=== PATIENT | female | born 1960 | race Caucasian/White ===

== ENCOUNTER 2017-10-09 17:30 | Inpatient (IN) ==
[2017-10-09] MEDS ORDERED: 0.9 % Sodium Chloride 1,000 ML IVC ONE (17:50)
[2017-10-09] MEDS ORDERED: *HR* HYDROmorphone (PF) 1 MG/ML SYRINGE IVP ONE (18:02)
--- NOTE | 2017-10-09 18:05 | Emergency Department Note ---
Disposition Clinical Impression: Abscess of skin or subcutaneous tissue Qualifiers: Site of cutaneous abscess: extremity Site of cutaneous abscess of extremity: lower extremity Laterality: right Qualified Code(s): L02.415 - Cutaneous abscess of right lower limb Cellulitis Qualifiers: Site of cellulitis: extremity Site of cellulitis of extremity: lower extremity Laterality: right Qualified Code(s): L03.115 - Cellulitis of right lower limb Disposition: Still a Patient Condition: Undetermined Referrals: Cici Kinsey [Primary Care Provider] - Forms: ED Satisfaction Letter General Adult HPI - General Chief complaint: ED Skin/Abscess/Foreign Body Stated complaint: Cyst on thigh Time Seen by Provider: 10/09/17 17:38 Source: patient Limitations: no limitations Nursing Notes Reviewed: Yes Vital Signs Reviewed: Yes - History of Present Illness Pain Scale: 10 - Related Data Previous Rx's Medication Instructions Recorded Buspirone HCl [Buspar] 15 mg PO TID #90 tablet 09/21/15 FLUoxetine HCl [Prozac] 60 mg PO DAILY #90 capsule 09/21/15 LORazepam [Ativan] 0.5 mg PO TID #90 tablet 09/21/15 Lurasidone [Latuda] 40 mg PO BID #60 tablet 09/21/15 OXcarbazepine [Trileptal] 300 mg PO HS #30 tablet 09/21/15 Trazodone HCl [TraZODone] 100 mg PO HS #30 tablet 09/21/15 Azithromycin [Zithromax] 250 mg PO DAILY #6 tablet 04/13/16 GuaiFENesin/Dextromethorphan 5 ml PO Q6H PRN #120 ml 04/13/16 [Robitussin Cough-Chest Dm Liq] Loratadine [Claritin] 10 mg PO DAILY #30 tablet 04/13/16 Cefdinir [Omnicef] 300 mg PO BID #20 capsule 04/19/16 Fluconazole [Diflucan] 150 mg PO DAILY #1 tab 04/19/16 Ondansetron [Zofran] 8 mg PO TID PRN #12 tablet 04/19/16 Clindamycin HCl 300 mg PO TID 10 Days #30 capsule 10/08/17 Allergies Allergy/AdvReac Type Severity Reaction Status Date / Time levofloxacin [From Levaquin] AdvReac Joint Pain Verified 09/04/15 12:59 Past Medical History - Past Medical History Medical history: Reports: hyperlipidemia, hypertension, myocardial infarction, TIA, other Surgical history: Reports: cholecystectomy, hysterectomy, other Psychiatric history: Reports: anxiety, depression, prior suicide attempt, schizophrenia, previous psychiatric hospitalization AUTOMOTIVE SERVICE ADVISOR history: Reports: no AUTOMOTIVE SERVICE ADVISOR history - Social History Smoking Status: Current every day smoker Smokeless Tobacco Status: No Alcohol use: Reports: none Drug use: Reports: none Physical Exam - General Limitations: no limitations General appearance: alert, in no apparent distress Course Vital Signs Temperature 98.3 F 10/09/17 17:31 Pulse Rate 104 10/09/17 17:31 Respiratory Rate 16 10/09/17 17:31 Blood Pressure 113/71 10/09/17 17:31 O2 Sat by Pulse Oximetry 96 10/09/17 17:31 Temperature 98.3 F 10/09/17 17:40 Pulse Rate 89 10/09/17 18:20 Respiratory Rate 16 10/09/17 18:20 Blood Pressure 102/62 10/09/17 18:20 O2 Sat by Pulse Oximetry 97 10/09/17 18:20 Oxygen Delivery Oxygen Delivery Room Air Medical Decision Making - [facility] Narrative Medical decision making narrative: 1804 hrs.: Patient EKG performed shows a sinus rhythm, rate is 87, QRS is 109, QTC is 431, no signs of ischemia, compared this to an EKG done in 2016 shows no changes except for rate. - Lab Data Result diagrams: 10/09/17 17:57 10/09/17 17:57 Lab Results 10/09/17 10/09/17 10/09/17 Range/Units 17:57 17:57 18:15 WBC 10.6 (4.3-11.1) K/mcL RBC 3.48 L (3.82-4.97) M/mcL Hgb 11.2 L (11.5-15.4) g/dL Hct 32.1 L (35.3-44.9) % MCV 92.2 (83.0-100.0) fL MCH 32.2 (28.0-33.3) pg MCHC 34.9 (31.6-35.5) g/dL RDW 12.6 (11.5-14.5) % Plt Count 250 (140-400) K/mcL MPV 8.6 L (9.4-12.4) fL Immature Gran % 0.3 (0-4) % Seg Neutrophils % 68.9 % Lymphocytes % 20.6 % Monocytes % 7.2 % Eosinophils % 2.5 % Basophils % 0.5 % Neutrophils # 7.3 (1.6-8.9) K/mcL Lymphocytes # 2.2 (0.6-4.6) K/mcL Monocytes # 0.8 (0.0-1.3) K/mcL Eosinophils # 0.3 (0.0-0.6) K/mcL Basophils # 0.1 (0.0-0.2) K/mcL Sodium 124 L (136-145) mEq/L Potassium 3.7 (3.5-5.1) mEq/L Chloride 89 L (98-107) mEq/L Carbon Dioxide 25 (23-29) mEq/L BUN 10 (6-20) mg/dL Creatinine 0.77 (0.60-1.20) mg/dL Est GFR ( Amer) > 60 (> 60) Est GFR (Non-Af Amer) > 60 (> 60) BUN/Creatinine Ratio 13 (6-26) Glucose 128 H (70-105) mg/dL Calculated Osmolality 259 L (280-300) Lactic Acid 1.2 (0.5-2.2) mmol/L Calcium 9.6 (8.6-10.3) mg/dL Attestation Statement - Attestation Attestation: This documentation is done with the assistance of Dragon dictation. Despite efforts made to ensure accuracy, there may be inaccuracies in welder operator or spelling and typographical errors. I examined this patient and my medical decision-making was reviewed with the Resident Physician. I agree with the documented findings, disposition and treatment plan as described except to the extent set forth below. Patient seen and evaluated with Dr. Sánchez and myself, I agree with his evaluation and management plan, supervised care the patient's stay. Patient presents today with what she says is an abscess on her right thigh. This is on the upper aspect of the thigh just below the crease line anteriorly. This does not involve the vagina or down into the perineal area. She sits been about 5 days. Tre and caty. She went to urgent care last night. They started on antibiotic that is 3 times a day and start to the B but she is not certain of the name. She has had a total of 4 doses. These said the redness is expanding. What worries her is that on the left leg about 5 years ago she had necrotizing fasciitis at that surgery for that. She states she is not diabetic. She is not allergic to any medications. We will start her on antibiotics here after getting labs something for pain and reassess. We will do a bedside ultrasound the area and then she still needs need CT of the area. She is in agreement with plan.
[2017-10-09 18:09] LABS: Basophils # 0.1 K/mcL (0.0-0.2); Basophils % 0.5 %; Eosinophils # 0.3 K/mcL (0.0-0.6); Eosinophils % 2.5 %; Hematocrit 32.1 % (35.3-44.9); Hemoglobin 11.2 g/dL (11.5-15.4); Immature Granulocytes % 0.3 % (0-4); Lymphocytes # 2.2 K/mcL (0.6-4.6); Lymphocytes % 20.6 %; Mean Corpuscular HGB Conc 34.9 g/dL (31.6-35.5); Mean Corpuscular Hemoglobin 32.2 pg (28.0-33.3); Mean Corpuscular Volume 92.2 fL (83.0-100.0); Mean Platelet Volume 8.6 fL (9.4-12.4); Monocytes # 0.8 K/mcL (0.0-1.3); Monocytes % 7.2 %; Neutrophils # 7.3 K/mcL (1.6-8.9); Platelet Count 250 K/mcL (140-400); Red Blood Count 3.48 M/mcL (3.82-4.97); Red Cell Distribution Width 12.6 % (11.5-14.5); Segmented Neutrophils % 68.9 %
[2017-10-09 18:28] LABS: BUN/Creatinine Ratio 13 (6-26); Blood Urea Nitrogen 10 mg/dL (6-20); Calcium 9.6 mg/dL (8.6-10.3); Carbon Dioxide 25 mEq/L (23-29); Chloride 89 mEq/L (98-107); Glucose 128 mg/dL (70-105); Osmolality,Calculated 259 (280-300); Potassium 3.7 mEq/L (3.5-5.1); Sodium 124 mEq/L (136-145); eGFR For African Americans > 60 (> 60); eGFR For Non-African Americans > 60 (> 60)
[2017-10-09] MEDS ORDERED: Isovue-370 500 ML INFUS..BTL IV ONE (18:37)
--- NOTE | 2017-10-09 18:40 | Emergency Department Note ---
Disposition Clinical Impression: Abscess of skin or subcutaneous tissue Qualifiers: Site of cutaneous abscess: extremity Site of cutaneous abscess of extremity: lower extremity Laterality: right Qualified Code(s): L02.415 - Cutaneous abscess of right lower limb Cellulitis Qualifiers: Site of cellulitis: extremity Site of cellulitis of extremity: lower extremity Laterality: right Qualified Code(s): L03.115 - Cellulitis of right lower limb Disposition: Still a Patient Condition: Undetermined Referrals: Cici Kinsey [Primary Care Provider] - Forms: ED Satisfaction Letter Time of Disposition: 18:48 Skin/Abscess/FB HPI Chief complaint: ED Skin/Abscess/Foreign Body Stated complaint: Cyst on thigh Time Seen by Provider: 10/09/17 17:38 Source: patient Mode of arrival: ambulatory Limitations: no limitations Nursing Notes Reviewed: Yes Vital Signs Reviewed: Yes HPI Narrative: 57-year-old female with history of hypertension, hyperlipidemia, [place], CVA, history of necrotizing fasciitis as well as debridement associated with, complaining of right lower extremity abscess and cellulitis. The patient was noted to develop an abscess in her right inguinal region roughly 8 hours ago. The patient states that she went to urgent care and they did a needle drainage of it. The patient states that since then it is continued to worsen and pain and induration. The patient states that the erythema surrounding is starting to radiate into her perineum and down her right lower extremity. The patient was taking clindamycin 300 mg 3 times a day. She has been taking these since then. She denies any fevers but admits to chills. Patient denies any other complaints at this time. Previous Rx's Medication Instructions Recorded Buspirone HCl [Buspar] 15 mg PO TID #90 tablet 09/21/15 FLUoxetine HCl [Prozac] 60 mg PO DAILY #90 capsule 09/21/15 LORazepam [Ativan] 0.5 mg PO TID #90 tablet 09/21/15 Lurasidone [Latuda] 40 mg PO BID #60 tablet 09/21/15 OXcarbazepine [Trileptal] 300 mg PO HS #30 tablet 09/21/15 Trazodone HCl [TraZODone] 100 mg PO HS #30 tablet 09/21/15 Azithromycin [Zithromax] 250 mg PO DAILY #6 tablet 04/13/16 GuaiFENesin/Dextromethorphan 5 ml PO Q6H PRN #120 ml 04/13/16 [Robitussin Cough-Chest Dm Liq] Loratadine [Claritin] 10 mg PO DAILY #30 tablet 04/13/16 Cefdinir [Omnicef] 300 mg PO BID #20 capsule 04/19/16 Fluconazole [Diflucan] 150 mg PO DAILY #1 tab 04/19/16 Ondansetron [Zofran] 8 mg PO TID PRN #12 tablet 04/19/16 Clindamycin HCl 300 mg PO TID 10 Days #30 capsule 10/08/17 Allergies Allergy/AdvReac Type Severity Reaction Status Date / Time levofloxacin [From Levaquin] AdvReac Joint Pain Verified 09/04/15 12:59 All systems ED: reviewed and negative except as stated. Constitutional: Reports: chills. Denies: fever, weakness ENT ED: Denies: congestion Cardiovascular: Denies: chest pain Respiratory: Denies: dyspnea Gastrointestinal: Denies: abdominal pain Genitourinary: Denies: urgency, dysuria Musculoskeletal: Denies: back pain Integumentary: Reports: rash, lesions Neurological: Denies: headache Past Medical History - Past Medical History Attestation: Yes The following information was validated with the patient. Source: patient, old records reviewed Medical history: Reports: CVA, hyperlipidemia, hypertension, myocardial infarction, TIA, other Surgical history: Reports: cholecystectomy, hysterectomy, other Psychiatric history: Reports: anxiety, depression, prior suicide attempt, schizophrenia, previous psychiatric hospitalization BIOLOGICAL INSPECTOR history: Reports: no BIOLOGICAL INSPECTOR history - Social History Smoking Status: Current every day smoker Smokeless Tobacco Status: No Alcohol use: Reports: none Drug use: Reports: none Physical Exam - General Limitations: no limitations General appearance: alert, in no apparent distress - Head Head exam: atraumatic, normocephalic, normal inspection - Eye Eye exam: Present: normal appearance, PERRL, EOMI - ENT ENT exam: normal exam, normal oropharynx, mucous membranes moist - Neck Neck exam: Present: normal inspection, full ROM, trachea midline - Chest Chest inspection: Present: normal inspection, symmetric chest wall rise - Respiratory Respiratory exam: Present: normal lung sounds bilaterally - Cardiovascular Cardiovascular exam: Present: normal rhythm, tachycardia, normal heart sounds - Abdominal Exam Abdominal exam: Present: soft, Non-Tender. Absent: tenderness, distention, guarding, rebound, rigidity - Extremities Exam Extremities exam: Present: other (Abscess in right inguinal region with cellulitis radiating distally in RLE and into perineum. Indurated region in right inguinal region.) Course Vital Signs Temperature 98.3 F 10/09/17 17:31 Pulse Rate 104 10/09/17 17:31 Respiratory Rate 16 10/09/17 17:31 Blood Pressure 113/71 10/09/17 17:31 O2 Sat by Pulse Oximetry 96 10/09/17 17:31 Temperature 98.3 F 10/09/17 17:40 Pulse Rate 89 10/09/17 18:20 Respiratory Rate 16 10/09/17 18:20 Blood Pressure 102/62 10/09/17 18:20 O2 Sat by Pulse Oximetry 97 10/09/17 18:20 Oxygen Delivery Oxygen Delivery Room Air Skin/Abscess/Foreign Body - Lab Data Lab results reviewed: Yes I reviewed the patient's lab results. Result diagrams: 10/09/17 17:57 10/09/17 17:57 Lab Results 10/09/17 10/09/17 10/09/17 Range/Units 17:57 17:57 18:15 WBC 10.6 (4.3-11.1) K/mcL RBC 3.48 L (3.82-4.97) M/mcL Hgb 11.2 L (11.5-15.4) g/dL Hct 32.1 L (35.3-44.9) % MCV 92.2 (83.0-100.0) fL MCH 32.2 (28.0-33.3) pg MCHC 34.9 (31.6-35.5) g/dL RDW 12.6 (11.5-14.5) % Plt Count 250 (140-400) K/mcL MPV 8.6 L (9.4-12.4) fL Immature Gran % 0.3 (0-4) % Seg Neutrophils % 68.9 % Lymphocytes % 20.6 % Monocytes % 7.2 % Eosinophils % 2.5 % Basophils % 0.5 % Neutrophils # 7.3 (1.6-8.9) K/mcL Lymphocytes # 2.2 (0.6-4.6) K/mcL Monocytes # 0.8 (0.0-1.3) K/mcL Eosinophils # 0.3 (0.0-0.6) K/mcL Basophils # 0.1 (0.0-0.2) K/mcL Sodium 124 L (136-145) mEq/L Potassium 3.7 (3.5-5.1) mEq/L Chloride 89 L (98-107) mEq/L Carbon Dioxide 25 (23-29) mEq/L BUN 10 (6-20) mg/dL Creatinine 0.77 (0.60-1.20) mg/dL Est GFR ( Amer) > 60 (> 60) Est GFR (Non-Af Amer) > 60 (> 60) BUN/Creatinine Ratio 13 (6-26) Glucose 128 H (70-105) mg/dL Calculated Osmolality 259 L (280-300) Lactic Acid 1.2 (0.5-2.2) mmol/L Calcium 9.6 (8.6-10.3) mg/dL - EKG Data EKG attestation: Yes I reviewed and interpreted this EKG. EKG results narrative: Heart rate 87 BPM. Normal sinus rhythm. No ST elevation or ST depression noted.
[2017-10-09] MEDS ORDERED: *HR* FentaNYL (PF) 100 MCG/2 ML VIAL IVP ONE (19:45)
--- NOTE | 2017-10-09 19:46 | Emergency Department Note ---
Disposition Clinical Impression: Abscess of skin or subcutaneous tissue Qualifiers: Site of cutaneous abscess: extremity Site of cutaneous abscess of extremity: lower extremity Laterality: right Qualified Code(s): L02.415 - Cutaneous abscess of right lower limb Cellulitis Qualifiers: Site of cellulitis: extremity Site of cellulitis of extremity: lower extremity Laterality: right Qualified Code(s): L03.115 - Cellulitis of right lower limb Disposition: Still a Patient Condition: Undetermined Referrals: Cici Kinsey [Primary Care Provider] - Forms: ED Satisfaction Letter General Adult HPI - General Chief complaint: ED Skin/Abscess/Foreign Body Stated complaint: Cyst on thigh Time Seen by Provider: 10/09/17 17:38 Source: patient Mode of arrival: ambulatory Limitations: no limitations - History of Present Illness Pain Scale: 10 - Related Data Previous Rx's Medication Instructions Recorded Buspirone HCl [Buspar] 15 mg PO TID #90 tablet 09/21/15 FLUoxetine HCl [Prozac] 60 mg PO DAILY #90 capsule 09/21/15 LORazepam [Ativan] 0.5 mg PO TID #90 tablet 09/21/15 Lurasidone [Latuda] 40 mg PO BID #60 tablet 09/21/15 OXcarbazepine [Trileptal] 300 mg PO HS #30 tablet 09/21/15 Trazodone HCl [TraZODone] 100 mg PO HS #30 tablet 09/21/15 Azithromycin [Zithromax] 250 mg PO DAILY #6 tablet 04/13/16 GuaiFENesin/Dextromethorphan 5 ml PO Q6H PRN #120 ml 04/13/16 [Robitussin Cough-Chest Dm Liq] Loratadine [Claritin] 10 mg PO DAILY #30 tablet 04/13/16 Cefdinir [Omnicef] 300 mg PO BID #20 capsule 04/19/16 Fluconazole [Diflucan] 150 mg PO DAILY #1 tab 04/19/16 Ondansetron [Zofran] 8 mg PO TID PRN #12 tablet 04/19/16 Clindamycin HCl 300 mg PO TID 10 Days #30 capsule 10/08/17 Allergies Allergy/AdvReac Type Severity Reaction Status Date / Time levofloxacin [From Levaquin] AdvReac Joint Pain Verified 09/04/15 12:59 Constitutional: Reports: chills. Denies: fever, weakness ENT ED: Denies: congestion Cardiovascular: Denies: chest pain Respiratory: Denies: dyspnea Gastrointestinal: Denies: abdominal pain Genitourinary: Denies: urgency, dysuria Musculoskeletal: Denies: back pain Integumentary: Reports: rash, lesions Neurological: Denies: headache Past Medical History - Past Medical History Medical history: Reports: CVA, hyperlipidemia, hypertension, myocardial infarction, TIA, other Surgical history: Reports: cholecystectomy, hysterectomy, other Psychiatric history: Reports: anxiety, depression, prior suicide attempt, schizophrenia, previous psychiatric hospitalization RADIATOR SPECIALIST history: Reports: no RADIATOR SPECIALIST history - Social History Smoking Status: Current every day smoker Smokeless Tobacco Status: No Alcohol use: Reports: none Drug use: Reports: none Physical Exam - General Limitations: no limitations General appearance: alert, in no apparent distress Course - Reevaluation(s) Reevaluation #1: Attestation note I examined this patient and my medical decision-making was reviewed with the emergency medicine resident. I agree with the documented findings, disposition and treatment plan as described except to the extent set forth below. Patient seen with emergency medicine resident Paramjit Colin, Please see a copy of his note for details of the H&P, ED evaluation, management and disposition. I have independently evaluated the patient and confirmed appropriate portions of the history and physical exam. Briefly patient initially seen by the emergency medicine morning team of Dr. Antonio and Dr. Sánchez. Please see a copy of their notes for details that encounter. Patient was signed out at 7 PM patient had inguinal cellulitis that spreading the concern about possible necrotizing fasciitis abdominal pelvic CT with IV contrast has been completed awaiting for radiologic results. Patient is on IV vancomycin currently getting a second dose of narcotics she got Dilaudid initially and now she is getting fentanyl. Disposition pending, admission anticipated. Time: 19:45 Vital Signs Temperature 98.3 F 10/09/17 17:31 Pulse Rate 104 10/09/17 17:31 Respiratory Rate 16 10/09/17 17:31 Blood Pressure 113/71 10/09/17 17:31 O2 Sat by Pulse Oximetry 96 10/09/17 17:31 Temperature 98.3 F 10/09/17 17:40 Pulse Rate 89 10/09/17 18:20 Respiratory Rate 16 10/09/17 18:20 Blood Pressure 102/62 10/09/17 18:20 O2 Sat by Pulse Oximetry 97 10/09/17 18:20 Oxygen Delivery Oxygen Delivery Room Air Medical Decision Making - Lab Data Result diagrams: 10/09/17 17:57 10/09/17 17:57 Lab Results 10/09/17 10/09/17 10/09/17 Range/Units 17:57 17:57 18:15 WBC 10.6 (4.3-11.1) K/mcL RBC 3.48 L (3.82-4.97) M/mcL Hgb 11.2 L (11.5-15.4) g/dL Hct 32.1 L (35.3-44.9) % MCV 92.2 (83.0-100.0) fL MCH 32.2 (28.0-33.3) pg MCHC 34.9 (31.6-35.5) g/dL RDW 12.6 (11.5-14.5) % Plt Count 250 (140-400) K/mcL MPV 8.6 L (9.4-12.4) fL Immature Gran % 0.3 (0-4) % Seg Neutrophils % 68.9 % Lymphocytes % 20.6 % Monocytes % 7.2 % Eosinophils % 2.5 % Basophils % 0.5 % Neutrophils # 7.3 (1.6-8.9) K/mcL Lymphocytes # 2.2 (0.6-4.6) K/mcL Monocytes # 0.8 (0.0-1.3) K/mcL Eosinophils # 0.3 (0.0-0.6) K/mcL Basophils # 0.1 (0.0-0.2) K/mcL Sodium 124 L (136-145) mEq/L Potassium 3.7 (3.5-5.1) mEq/L Chloride 89 L (98-107) mEq/L Carbon Dioxide 25 (23-29) mEq/L BUN 10 (6-20) mg/dL Creatinine 0.77 (0.60-1.20) mg/dL Est GFR ( Amer) > 60 (> 60) Est GFR (Non-Af Amer) > 60 (> 60) BUN/Creatinine Ratio 13 (6-26) Glucose 128 H (70-105) mg/dL Calculated Osmolality 259 L (280-300) Lactic Acid 1.2 (0.5-2.2) mmol/L Calcium 9.6 (8.6-10.3) mg/dL
--- NOTE | 2017-10-09 20:36 | Emergency Department Note ---
Disposition Clinical Impression: Abscess of skin or subcutaneous tissue Qualifiers: Site of cutaneous abscess: extremity Site of cutaneous abscess of extremity: lower extremity Laterality: right Qualified Code(s): L02.415 - Cutaneous abscess of right lower limb Cellulitis Qualifiers: Site of cellulitis: extremity Site of cellulitis of extremity: lower extremity Laterality: right Qualified Code(s): L03.115 - Cellulitis of right lower limb Disposition: Admitted As Inpatient Condition: Fair Time of Disposition: 20:55 General Adult HPI - General Chief complaint: ED Skin/Abscess/Foreign Body Stated complaint: Cyst on thigh Time Seen by Provider: 10/09/17 17:38 Source: patient Mode of arrival: ambulatory Limitations: no limitations Nursing Notes Reviewed: Yes Vital Signs Reviewed: Yes - History of Present Illness Pain Scale: 10 - Related Data Home Medications Medication Instructions Recorded Confirmed Albuterol Sulfate [Ventolin Hfa] 2 puff IH Q6H 10/09/17 10/09/17 Buspirone HCl [Buspar] 15 mg PO TID 10/09/17 10/09/17 Cetirizine HCl [Cetirizine HCl] 10 mg PO DAILY 10/09/17 10/09/17 Cholecalciferol (Vitamin D3) 1,000 mg PO BID 10/09/17 10/09/17 [Vitamin D3] Clindamycin [Cleocin] 300 mg PO TID 10/09/17 10/09/17 Divalproex (12 HR) [Depakote (12 500 mg PO TID 10/09/17 10/09/17 HR)] Escitalopram [Lexapro] 1.5 tab PO DAILY 10/09/17 10/09/17 Fluticasone/Vilanterol [Breo 1 puff IH DAILY 10/09/17 10/09/17 Ellipta 100-25 Mcg INH] LORazepam [Ativan] 0.5 mg PO TID PRN 10/09/17 10/09/17 Lurasidone [Latuda] 40 mg PO DAILY 10/09/17 10/09/17 Metoprolol [Lopressor] 25 mg PO BID 10/09/17 10/09/17 OXcarbazepine [Oxcarbazepine] 300 mg PO QAM 10/09/17 10/09/17 OXcarbazepine [Oxcarbazepine] 600 mg PO HS 10/09/17 10/09/17 Pravastatin Sodium [Pravachol] 20 mg PO HS 10/09/17 10/09/17 Tizanidine HCl [Zanaflex] 4 mg PO TID PRN 10/09/17 10/09/17 Trazodone HCl 100 - 150 mg PO HS 10/09/17 10/09/17 cloNIDine HCl [CloNIDine HCl] 0.1 mg PO HS 10/09/17 10/09/17 cloZAPine [Clozaril] 100 mg PO BID 10/09/17 10/09/17 hydroCHLOROthiazide 25 mg PO DAILY 10/09/17 10/09/17 [Hydrochlorothiazide] Allergies Allergy/AdvReac Type Severity Reaction Status Date / Time levofloxacin [From Levaquin] AdvReac Joint Pain Verified 10/09/17 20:55 Constitutional: Reports: chills. Denies: fever, weakness ENT ED: Denies: congestion Cardiovascular: Denies: chest pain Respiratory: Denies: dyspnea Gastrointestinal: Denies: abdominal pain Genitourinary: Denies: urgency, dysuria Musculoskeletal: Denies: back pain Integumentary: Reports: rash, lesions Neurological: Denies: headache Past Medical History - Past Medical History Medical history: Reports: CVA, hyperlipidemia, hypertension, myocardial infarction, TIA, other Surgical history: Reports: cholecystectomy, hysterectomy, other Psychiatric history: Reports: anxiety, depression, prior suicide attempt, schizophrenia, previous psychiatric hospitalization RHIT history: Reports: no RHIT history - Social History Smoking Status: Current every day smoker Smokeless Tobacco Status: No Alcohol use: Reports: none Drug use: Reports: none Physical Exam - General Limitations: no limitations General appearance: alert, in no apparent distress Course Course Narrative: Briefly care was signed out from Dr. Roa and Dr. Antonio, the patient with right lower extremity cellulitis CT scan to make sure she has no evidence necrotizing fasciitis started empirically on IV antibiotics, given history of neck rash, plans for admission Vital Signs Temperature 98.3 F 10/09/17 17:31 Pulse Rate 104 10/09/17 17:31 Respiratory Rate 16 10/09/17 17:31 Blood Pressure 113/71 10/09/17 17:31 O2 Sat by Pulse Oximetry 96 10/09/17 17:31 Temperature 98.1 F 10/09/17 22:10 Pulse Rate 82 10/09/17 22:10 Respiratory Rate 15 10/09/17 22:10 Blood Pressure 109/73 10/09/17 22:10 O2 Sat by Pulse Oximetry 96 10/09/17 22:10 Oxygen Delivery Oxygen Delivery Room Air Medical Decision Making - MDM Narrative Medical decision making narrative: The patient had no evidence of necrotizing fasciitis, added additionally some Zosyn, she is empirically treated with browne Zosyn for cellulitis of the right thigh and leg, the patient is admitted to the hospitalist excepting please see Dr. bryant Roa and Dr. Antonio for further history physical exam and medical decision making. - Medical Records Medical records reviewed: Yes I reviewed the patient's medical records. - Lab Data Lab results reviewed: Yes I reviewed the patient's lab results. Result diagrams: 10/09/17 17:57 10/09/17 17:57 Lab Results 10/09/17 10/09/17 10/09/17 Range/Units 17:57 17:57 18:15 WBC 10.6 (4.3-11.1) K/mcL RBC 3.48 L (3.82-4.97) M/mcL Hgb 11.2 L (11.5-15.4) g/dL Hct 32.1 L (35.3-44.9) % MCV 92.2 (83.0-100.0) fL MCH 32.2 (28.0-33.3) pg MCHC 34.9 (31.6-35.5) g/dL RDW 12.6 (11.5-14.5) % Plt Count 250 (140-400) K/mcL MPV 8.6 L (9.4-12.4) fL Immature Gran % 0.3 (0-4) % Seg Neutrophils % 68.9 % Lymphocytes % 20.6 % Monocytes % 7.2 % Eosinophils % 2.5 % Basophils % 0.5 % Neutrophils # 7.3 (1.6-8.9) K/mcL Lymphocytes # 2.2 (0.6-4.6) K/mcL Monocytes # 0.8 (0.0-1.3) K/mcL Eosinophils # 0.3 (0.0-0.6) K/mcL Basophils # 0.1 (0.0-0.2) K/mcL Sodium 124 L (136-145) mEq/L Potassium 3.7 (3.5-5.1) mEq/L Chloride 89 L (98-107) mEq/L Carbon Dioxide 25 (23-29) mEq/L BUN 10 (6-20) mg/dL Creatinine 0.77 (0.60-1.20) mg/dL Est GFR ( Amer) > 60 (> 60) Est GFR (Non-Af Amer) > 60 (> 60) BUN/Creatinine Ratio 13 (6-26) Glucose 128 H (70-105) mg/dL Calculated Osmolality 259 L (280-300) Lactic Acid 1.2 (0.5-2.2) mmol/L Calcium 9.6 (8.6-10.3) mg/dL - Radiology Data Radiology results reviewed: Yes I reviewed the patient's radiology results. Lower Extremity CT 10/09/17 18:37 IMPRESSION: 1. Cellulitis of the proximal medial subcutaneous tissues of the right thigh. No organized drainable fluid collection identified. 2. Right inguinal lymphadenopathy, likely reactive. 3. [id number] osteoarthritis of the bilateral hips. D/ / Bryn Perez MD / Bryn Perez MD Interpreting Provider: Bryn Perez MD
[2017-10-09] MEDS ORDERED: Piperacillin/Tazobactam 3.375 GM in 0.9 % Sodium Chloride Mini Bag 100 ML IVPB ONE (20:45)
--- NOTE | 2017-10-09 21:08 | Internal Med History&Physical ---
<Tigist Sheridan - Last Filed: 10/10/17 06:09> Date of Encounter: 10/10/17 Time of Encounter: 21:01 Internal Medicine - H&P: HPI Chief complaint: abcess Admitted From: Home Plans for Post Hospital Care: Home History of present illness: Ms. Pardo is a 57 year old female with a pmh of hypertension, hyperlipidemia, [place] , CVA, history of necrotizing fasciitis who presented to the ED with right inguinal region abscess and cellulitis extending down her right thigh. 5 days ago, patient states that an abscess appeared in the right inguinal area. She used warm compresses but it did not go away so she went to the urgent care on and began taking Clindamycin 300mg TID. She had had associated subjective fevers and some dizziness. Denies hematuria, dysuria, shortness of breath, chest pain. The redness continued his Thierno down her right leg and pain worsened over the last 24 hours since she came to the ED. Upon arrival to the ED, patient was tachycardic but afebrile. No leukocytosis. CT of right lower extremity showed "skin thickening and subcutaneous edema throughout the subcutaneous tissues of the anterior and medial proximal right thigh consistent with cellulitis. No organized drainable fluid collection identified. Mild subcutaneous edema extends distally down the thigh also suggestive of cellulitis." She was given once dose of Vancomycin and Zosyn. Patient was admitted to the floor for inguinal abscess with failed outpatient treatment. Past Med Surg Social Fam HX - Past Medical History Source: patient, old records reviewed Medical history: CVA, hyperlipidemia, hypertension, myocardial infarction ( requiring no intervention), TIA, other Additional medical history: necrotizing fascitis Psychiatric history: anxiety, depression, prior suicide attempt, schizophrenia, previous psychiatric hospitalization - Past Surgical History Surgical History: cholecystectomy, hysterectomy, other (Necrotizing fasciitis debridement) Additional surgical history: sinus surgery x4. electrical device inserted in bladder to regulate urine- placed a year ago. D&C - Social History Smoking Status: Current every day smoker Smokeless Tobacco Status: No Alcohol use: none Drug use: none Internal Medicine - H&P: Meds Albuterol Sulfate [Ventolin Hfa] 2 puff IH Q6H 10/09/17 [History] Buspirone HCl [Buspar] 15 mg PO TID 10/09/17 [History] Cetirizine HCl [Cetirizine HCl] 10 mg PO DAILY 10/09/17 [History] Cholecalciferol (Vitamin D3) [Vitamin D3] 1,000 mg PO BID 10/09/17 [History] Clindamycin [Cleocin] 300 mg PO TID 10/09/17 [History] Divalproex (12 HR) [Depakote (12 HR)] 500 mg PO TID 10/09/17 [History] Escitalopram [Lexapro] 1.5 tab PO DAILY 10/09/17 [History] Fluticasone/Vilanterol [Breo Ellipta 100-25 Mcg INH] 1 puff IH DAILY 10/09/17 [ History] LORazepam [Ativan] 0.5 mg PO TID PRN 10/09/17 [History] Lurasidone [Latuda] 40 mg PO DAILY 10/09/17 [History] Metoprolol [Lopressor] 25 mg PO BID 10/09/17 [History] OXcarbazepine [Oxcarbazepine] 300 mg PO QAM 10/09/17 [History] OXcarbazepine [Oxcarbazepine] 600 mg PO HS 10/09/17 [History] Pravastatin Sodium [Pravachol] 20 mg PO HS 10/09/17 [History] Tizanidine HCl [Zanaflex] 4 mg PO TID PRN 10/09/17 [History] Trazodone HCl 100 - 150 mg PO HS 10/09/17 [History] cloNIDine HCl [CloNIDine HCl] 0.1 mg PO HS 10/09/17 [History] cloZAPine [Clozaril] 100 mg PO BID 10/09/17 [History] hydroCHLOROthiazide [Hydrochlorothiazide] 25 mg PO DAILY 10/09/17 [History] Montelukast [Singulair] 10 mg PO HS 10/10/17 [History] 3 Allergy/AdvReac Type Severity Reaction Status Date / Time levofloxacin [From Levaquin] AdvReac Joint Pain Verified 10/09/17 20:55 All Systems PM: A 10-system review of systems was performed and is negative for pertinent findings except as documented above in the HPI. - Constitutional Vitals: Temp Pulse Resp BP Pulse Ox 98.3 F 84 18 124/73 96 10/09/17 17:40 10/09/17 20:37 10/09/17 20:37 10/09/17 20:37 10/09/17 20:37 Exam: Constitutional: Alert, in no acute distress Head: Normocephalic, atraumatic Heart: Normal, regular rate and rhythm, no murmurs Lungs: Clear to auscultation, no wheezes, rales, or rhonchi Abdomen: Soft, nondistended, nontender, bowel sounds present and normal, no guarding or rigidity. Extremities: red, non-flucenant mass with induration present in her right inguinal area with redness extending about 2/3 down the medial aspect of her thigh Skin: Skin warm and dry, no lesions, no rashes, no jaundice Neurologic: Cranial nerves II through XII grossly intact, strength 5/5 in all extremitites Psych: Cooperative with exam, good eye contact, cognitive function intact, speech clear, thought process logical, and goal directed Internal Med - H&P Results - Labs CBC & Chem 7: 10/10/17 04:26 10/10/17 04:26 Labs: Short CBC 10/09/17 Range/Units 17:57 WBC 10.6 (4.3-11.1) K/mcL Hgb 11.2 L (11.5-15.4) g/dL Hct 32.1 L (35.3-44.9) % Plt Count 250 (140-400) K/mcL Neutrophils # 7.3 (1.6-8.9) K/mcL BMP 10/09/17 17:57 Sodium 124 L Potassium 3.7 Chloride 89 L Carbon Dioxide 25 BUN 10 Creatinine 0.77 Glucose 128 H Calcium 9.6 - Impressions ITS Impressions Lower Extremity CT 10/09/17 18:37 IMPRESSION: 1. Cellulitis of the proximal medial subcutaneous tissues of the right thigh. No organized drainable fluid collection identified. 2. Right inguinal lymphadenopathy, likely reactive. 3. [id number] osteoarthritis of the bilateral hips. D/ / Bryn Perez MD / Bryn Perez MD Interpreting Provider: Bryn Perez MD - Assessment and plan (1) Cellulitis and abscess of right lower extremity Current Visit: Yes Status: Acute Assessment and plan: Right inguinal abscess with cellulitis extending down her right thigh about 2/ 3. CT of right lower extremity showed skin thickening and subcutaneous edema throughout the subcutaneous tissues of the anterior and medial proximal right thigh consistent with cellulitis. No organized drainable fluid collection identified. Mild subcutaneous edema extends distally down the thigh also suggestive of cellulitis.She was given one dose of Vancomycin and Zosyn. Patient currently does not meet SIRS criteria. Accurate wound culture unable to be obtain as wound was drained via needle puncture, primary team may need to call urgent care to see if wound cultures were obtained there. Plan: - continue IV Vanco and Zosyn - blood cultures obtained (2) Hyponatremia Current Visit: Yes Status: Acute Assessment and plan: Na= 124, Cl= 89, most likely 2/2 to dehydration. Will begin IV fluid rehydration with NS 75ml/hr. (3) Diabetes Current Visit: Yes Status: Chronic Assessment and plan: Patient does not take any medications for DM as she has lowered her A1c with diet and exercise. Plan: - low SSI - diet: diabetic Qualifiers: Diabetes mellitus type: type 2 Diabetes mellitus terminal superintendent insulin use: without terminal superintendent use Diabetes mellitus complication status: without complication Qualified Code(s): E11.9 - Type 2 diabetes mellitus without complications (4) Bipolar 1 disorder Current Visit: Yes Status: Acute Assessment and plan: continue home meds. Patient sees a psychiatrist in all home meds of and verified by the nurse with pill bottles at bedside. (5) Schizoaffective disorder, bipolar type Current Visit: Yes Status: Acute Assessment and plan: continue home meds. (6) DVT prophylaxis Current Visit: Yes Status: Acute Assessment and plan: Heparin SQ - Time Spent With Patient Total time spent is greater than 50% in coordination of care (as documented) at patient's floor/unit and/or counseling patient: <Pema Stevens O - Last Filed: 10/11/17 05:42> Date of Encounter: 10/10/17 Internal Medicine - H&P: HPI History of present illness: Ms. Pardo is a 57 year old female All Systems PM: A 10-system review of systems was performed and is negative for pertinent findings except as documented above in the HPI. - Constitutional Vitals: Temp Pulse Resp BP Pulse Ox 97.7 F 68 16 127/85 94 10/11/17 01:12 10/11/17 01:12 10/11/17 01:12 10/11/17 01:12 10/11/17 01:12 - Head Head exam: Present: atraumatic, normocephalic - Eye Eye exam: Present: PERRL, conjuntiva pink, sclera anicteric Pupils: Present: PERRL - Neck Neck exam general surgery: Present: supple, trachea midline. Absent: lymphadenopathy - Respiratory Respiratory exam: Present: CTAB. Absent: accessory muscle use, rales, rhonchi, wheezes - Cardiovascular Cardiovascular exam: Present: RRR, +S1, +S2. Absent: diastolic murmur, gallop, rubs, systolic murmur - GI/Abdominal GI/Abdominal exam: Present: normal bowel sounds, soft, no peritoneal signs. Absent: distended, tenderness - Extremities Exam Extremities exam: Present: warm, radial pulses palpable and symmetrical. Absent : calf tenderness, cyanotic, pedal edema - Neurological Exam Neurological exam: Present: CN II-XII intact, oriented X3, no focal deficits. Absent: pronater drift, facial droop, speech deficit - Skin Skin exam: Present: dry, intact Additional comments: Right upper inner thigh induration, erythema, ad swelling. Internal Med - H&P Results - Labs CBC & Chem 7: 10/11/17 00:42 10/11/17 01:21 Labs: Short CBC 10/11/17 Range/Units 00:42 WBC 7.3 (4.3-11.1) K/mcL Hgb 10.8 L (11.5-15.4) g/dL Hct 32.1 L (35.3-44.9) % Plt Count 274 (140-400) K/mcL Neutrophils # 3.6 (1.6-8.9) K/mcL BMP 10/10/17 10/10/17 10/11/17 12:22 18:20 00:42 Sodium 129 L 132 L 132 L Potassium 4.2 4.0 4.4 Chloride 95 L 97 L 101 Carbon Dioxide 26 26 22 L BUN 7 7 8 Creatinine 0.70 0.70 0.70 Glucose 147 H 160 H 156 H Calcium 9.7 9.5 9.1 10/11/17 01:21 Sodium 132 L Potassium 4.2 Chloride 100 Carbon Dioxide 24 BUN 8 Creatinine 0.70 Glucose 156 H Calcium 9.1 - Attending Attestation I performed a history and physical exam of the patient and discussed her management with the resident. I reviewed the residents note and agree with the documented findings and plan of care, except wound culture added and sent. Pt will also need psych medications clarified in am. - Time Spent With Patient Total time spent is greater than 50% in coordination of care (as documented) at patient's floor/unit and/or counseling patient:
[2017-10-09] MEDS ORDERED: Acetaminophen 325 MG TABLET PO PRN (21:44)
[2017-10-09] MEDS ORDERED: Naloxone 0.4 MG/ML INJ IVP PRN (21:44)
[2017-10-09] MEDS ORDERED: *HR* Dextrose 50 % in Water (Syg) 50 ML SYRINGE IVP PRN (22:14)
[2017-10-09] MEDS ORDERED: Dextrose Gel 15 GM/37.5 ML TUBE PO PRN ×2 (22:14)
[2017-10-09] MEDS ORDERED: D5% in Water 1,000 ML IVC PRN (22:14)
[2017-10-09] MEDS: *HR* Heparin 5,000 UNIT/ML VIAL SQ SCH (22:37)
[2017-10-09] MEDS: 0.9 % Sodium Chloride 1,000 ML IVC SCH (22:38)
[2017-10-09] MEDS: traMADol 50 MG TABLET PO PRN (22:42)
[2017-10-09] MEDS ORDERED: tiZANidine 4 MG TABLET PO PRN (23:22)
[2017-10-10] MEDS: OXcarbazepine 150 MG TABLET PO SCH ×2 (00:21→20:44)
[2017-10-10] MEDS: cloNIDine HCl 0.1 MG TABLET PO SCH ×2 (00:21→20:45)
[2017-10-10] MEDS: traZODone 50 MG TABLET PO SCH ×2 (00:22→20:44)
[2017-10-10] MEDS: cloZAPine 100 MG TABLET PO SCH ×3 (00:23→20:45)
[2017-10-10] MEDS: Divalproex (12 HR) 500 MG TABLET PO SCH ×4 (00:23→20:45)
[2017-10-10] MEDS: Nicotine 14 MG PATCH.TD24 TD SCH ×2 (00:23→07:51)
[2017-10-10 04:40] LABS: Basophils % 0.6 %; Eosinophils # 0.3 K/mcL (0.0-0.6); Eosinophils % 3.6 %; Hematocrit 30.1 % (35.3-44.9); Hemoglobin 10.4 g/dL (11.5-15.4); Immature Granulocytes % 0.3 % (0-4); Lymphocytes # 1.8 K/mcL (0.6-4.6); Lymphocytes % 25.3 %; Mean Corpuscular HGB Conc 34.6 g/dL (31.6-35.5); Mean Corpuscular Hemoglobin 32.3 pg (28.0-33.3); Mean Corpuscular Volume 93.5 fL (83.0-100.0); Mean Platelet Volume 8.7 fL (9.4-12.4); Monocytes # 0.6 K/mcL (0.0-1.3); Monocytes % 8.3 %; Neutrophils # 4.5 K/mcL (1.6-8.9); Platelet Count 216 K/mcL (140-400); Red Blood Count 3.22 M/mcL (3.82-4.97); Red Cell Distribution Width 12.7 % (11.5-14.5); Segmented Neutrophils % 61.9 %
[2017-10-10] MEDS: Piperacillin/Tazobactam 3.375 GM in 0.9 % Sodium Chloride Mini Bag 100 ML IVPB SCH ×3 (04:49→20:47)
[2017-10-10] MEDS: 0.9 % Sodium Chloride 1,000 ML IVC SCH (04:50)
[2017-10-10 05:00] LABS: BUN/Creatinine Ratio 14 (6-26); Blood Urea Nitrogen 10 mg/dL (6-20); Carbon Dioxide 27 mEq/L (23-29); Chloride 93 mEq/L (98-107); Glucose 165 mg/dL (70-105); Magnesium 1.9 mg/dL (1.6-2.6); Osmolality,Calculated 267 (280-300); Phosphorous 3.8 mg/dL (2.7-4.5); Potassium 3.4 mEq/L (3.5-5.1); Sodium 127 mEq/L (136-145); eGFR For African Americans > 60 (> 60); eGFR For Non-African Americans > 60 (> 60)
[2017-10-10] MEDS: *HR* Heparin 5,000 UNIT/ML VIAL SQ SCH ×2 (06:14→17:13)
[2017-10-10] MEDS: Loratadine 10 MG TABLET PO SCH (07:50)
[2017-10-10] MEDS: traMADol 50 MG TABLET PO PRN ×3 (07:50→20:45)
[2017-10-10] MEDS: hydroCHLOROthiazide 25 MG TABLET PO SCH (07:51)
[2017-10-10] MEDS: Insulin LISPRO 300 UNITS/3 ML VIAL SQ SCH ×3 (07:52→17:13)
[2017-10-10] MEDS: *HR* LORazepam 0.5 MG TABLET PO PRN ×2 (08:00→18:20)
--- NOTE | 2017-10-10 09:25 | Internal Med Progress Note ---
<Alecia Oliveira - Last Filed: 10/10/17 09:17> Date of Encounter: 10/10/17 Time of Encounter: 09:17 - Assessment and plan (1) Cellulitis Current Visit: Yes Status: Acute Assessment and plan: CT of right lower extremity showed skin thickening and subcutaneous edema throughout the subcutaneous tissues of the anterior and medial proximal right thigh consistent with cellulitis. No organized drainable fluid collection identified. - continue IV Vanco and Zosyn - blood cultures pending Qualifiers: Site of cellulitis: extremity Site of cellulitis of extremity: lower extremity Laterality: right Qualified Code(s): L03.115 - Cellulitis of right lower limb (2) Hyponatremia Current Visit: Yes Status: Acute Assessment and plan: sodium elevated to 127 this AM Most likely secondary to dehydration continue IV fluids (3) Diabetes Current Visit: Yes Status: Chronic Assessment and plan: Patient does not take any medications for DM as she has lowered her A1c with diet and exercise. 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 (5) Bipolar 1 disorder Current Visit: Yes Status: Chronic Assessment and plan: continue home meds. (6) DVT prophylaxis Current Visit: Yes Status: Acute Assessment and plan: Heparin SQ - Time Spent With Patient Total time spent is greater than 50% in coordination of care (as documented) at patient's floor/unit and/or counseling patient: - Subjective Interval history: Patient states she is already starting to feel mildly better. No nausea or headache. Good appetite. Redness has improved since yesterday. - Constitutional Vitals: Temp Pulse Resp BP Pulse Ox 98.4 F 99 15 148/90 93 10/10/17 06:52 10/10/17 06:52 10/10/17 06:52 10/10/17 06:52 10/10/17 06:52 General appearance: Present: A&O X 3, no acute distress, answers questions appropriately - Head Head exam: Present: atraumatic, normocephalic - Respiratory Respiratory exam: Present: CTAB. Absent: accessory muscle use, rales, rhonchi, wheezes - Cardiovascular Cardiovascular exam: Present: RRR, +S1, +S2. Absent: diastolic murmur, gallop, rubs, systolic murmur - GI/Abdominal GI/Abdominal exam: Present: normal bowel sounds, soft, no peritoneal signs. Absent: distended, tenderness - Skin Additional comments: red, non-flucenant mass with induration present in her right inguinal area with redness extending about 1/3 down the medial aspect of her thigh Internal Medicine: Result - Labs CBC & Chem 7: 10/10/17 04:26 10/10/17 04:26 Labs: Short CBC 10/10/17 Range/Units 04:26 WBC 7.2 (4.3-11.1) K/mcL Hgb 10.4 L (11.5-15.4) g/dL Hct 30.1 L (35.3-44.9) % Plt Count 216 (140-400) K/mcL Neutrophils # 4.5 (1.6-8.9) K/mcL BMP 10/10/17 04:26 Sodium 127 L Potassium 3.4 L Chloride 93 L Carbon Dioxide 27 BUN 10 Creatinine 0.72 Glucose 165 H Calcium 9.0 Consult Discharge Plan - Plan Referrals: Cici Kinsey [Primary Care Provider] - 10/16/17 2:40 pm <Olivia Bains - Last Filed: 10/10/17 13:27> Date of Encounter: 10/10/17 - Assessment and plan (1) Cellulitis and abscess of right lower extremity Current Visit: Yes Status: Acute (2) Hyponatremia Current Visit: Yes Status: Acute (3) Diabetes Current Visit: Yes Status: Chronic Qualifiers: Diabetes mellitus type: type 2 Diabetes mellitus longterm insulin use: without termite treater use Diabetes mellitus complication status: without complication Qualified Code(s): E11.9 - Type 2 diabetes mellitus without complications (4) DVT prophylaxis Current Visit: Yes Status: Acute (5) Schizoaffective disorder, bipolar type Current Visit: Yes Status: Chronic (6) Bipolar 1 disorder Current Visit: Yes Status: Chronic - Time Spent With Patient Total time spent is greater than 50% in coordination of care (as documented) at patient's floor/unit and/or counseling patient: - Constitutional Vitals: Temp Pulse Resp BP Pulse Ox 98.5 F 81 17 146/87 93 10/10/17 11:49 10/10/17 11:49 10/10/17 11:49 10/10/17 11:49 10/10/17 06:52 Internal Medicine: Result - Labs CBC & Chem 7: 10/10/17 04:26 10/10/17 12:22 Labs: Short CBC 10/10/17 Range/Units 04:26 WBC 7.2 (4.3-11.1) K/mcL Hgb 10.4 L (11.5-15.4) g/dL Hct 30.1 L (35.3-44.9) % Plt Count 216 (140-400) K/mcL Neutrophils # 4.5 (1.6-8.9) K/mcL BMP 10/10/17 10/10/17 04:26 12:22 Sodium 127 L 129 L Potassium 3.4 L 4.2 Chloride 93 L 95 L Carbon Dioxide 27 26 BUN 10 7 Creatinine 0.72 0.70 Glucose 165 H 147 H Calcium 9.0 9.7 - Attending Attestation I examined this patient and my medical decision-making was reviewed with the Resident Physician Dr. Oliveira. I agree with the documented findings, disposition and treatment plan as described except to the extent set forth below. Ms. Pardo is a 57 year old female with a pmh of hypertension, hyperlipidemia, [place] , CVA, history of necrotizing fasciitis who presented to the ED with right inguinal region abscess and cellulitis extending down her right thigh. pt was admitted here and started her on empirical abx. She does have moderate hyponatremia too. Gen: A, A, O x 3 Chest: DBS Heart: S1S2+ - small abscess noticed over rt groin area. Improving erythema noticed a/p 1. Acute Rt groin abscess with cellulities cont empirical abx Zosyn d/c Vanco 2. Acute hyponatremia due to hypovolemia - Dehydration Cont IV hydration frequent Na checks
[2017-10-10 13:09] LABS: BUN/Creatinine Ratio 10 (6-26); Blood Urea Nitrogen 7 mg/dL (6-20); Calcium 9.7 mg/dL (8.6-10.3); Carbon Dioxide 26 mEq/L (23-29); Chloride 95 mEq/L (98-107); Glucose 147 mg/dL (70-105); Osmolality,Calculated 269 (280-300); Potassium 4.2 mEq/L (3.5-5.1); Sodium 129 mEq/L (136-145); eGFR For African Americans > 60 (> 60); eGFR For Non-African Americans > 60 (> 60)
[2017-10-10 18:56] LABS: BUN/Creatinine Ratio 10 (6-26); Blood Urea Nitrogen 7 mg/dL (6-20); Calcium 9.5 mg/dL (8.6-10.3); Carbon Dioxide 26 mEq/L (23-29); Chloride 97 mEq/L (98-107); Glucose 160 mg/dL (70-105); Osmolality,Calculated 275 (280-300); Sodium 132 mEq/L (136-145); eGFR For African Americans > 60 (> 60); eGFR For Non-African Americans > 60 (> 60)
[2017-10-10] MEDS ORDERED: Insulin LISPRO 300 UNITS/3 ML VIAL SQ SCH (21:00)
[2017-10-10] MEDS ORDERED: Budesonide/Formoterol 80/4.5 MDI IH SCH (22:00)
[2017-10-11 01:14] LABS: Basophils % 0.5 %; Eosinophils # 0.4 K/mcL (0.0-0.6); Eosinophils % 4.9 %; Hematocrit 32.1 % (35.3-44.9); Hemoglobin 10.8 g/dL (11.5-15.4); Immature Granulocytes % 0.5 % (0-4); Lymphocytes # 2.7 K/mcL (0.6-4.6); Lymphocytes % 37.4 %; Mean Corpuscular HGB Conc 33.6 g/dL (31.6-35.5); Mean Corpuscular Hemoglobin 32.4 pg (28.0-33.3); Mean Corpuscular Volume 96.4 fL (83.0-100.0); Mean Platelet Volume 9.1 fL (9.4-12.4); Monocytes # 0.6 K/mcL (0.0-1.3); Monocytes % 7.5 %; Neutrophils # 3.6 K/mcL (1.6-8.9); Platelet Count 274 K/mcL (140-400); Red Blood Count 3.33 M/mcL (3.82-4.97); Red Cell Distribution Width 12.6 % (11.5-14.5); Segmented Neutrophils % 49.2 %
[2017-10-11 01:26] LABS: BUN/Creatinine Ratio 11 (6-26); Blood Urea Nitrogen 8 mg/dL (6-20); Calcium 9.1 mg/dL (8.6-10.3); Carbon Dioxide 22 mEq/L (23-29); Chloride 101 mEq/L (98-107); Glucose 156 mg/dL (70-105); Osmolality,Calculated 276 (280-300); Potassium 4.4 mEq/L (3.5-5.1); Sodium 132 mEq/L (136-145); eGFR For African Americans > 60 (> 60); eGFR For Non-African Americans > 60 (> 60)
[2017-10-11 02:24] LABS: BUN/Creatinine Ratio 11 (6-26); Blood Urea Nitrogen 8 mg/dL (6-20); Calcium 9.1 mg/dL (8.6-10.3); Carbon Dioxide 24 mEq/L (23-29); Chloride 100 mEq/L (98-107); Glucose 156 mg/dL (70-105); Osmolality,Calculated 276 (280-300); Potassium 4.2 mEq/L (3.5-5.1); Sodium 132 mEq/L (136-145); eGFR For African Americans > 60 (> 60); eGFR For Non-African Americans > 60 (> 60)
[2017-10-11] MEDS: *HR* Heparin 5,000 UNIT/ML VIAL SQ SCH (05:15)
[2017-10-11] MEDS: Piperacillin/Tazobactam 3.375 GM in 0.9 % Sodium Chloride Mini Bag 100 ML IVPB SCH (05:15)
[2017-10-11 06:47] LABS: Estimated Average Glucose 166 mg/dl; Hemoglobin A1C 7.4 %
[2017-10-11 08:09] VITALS: BP 142/84
--- NOTE | 2017-10-11 08:28 | Discharge Summary ---
- NOTES TO OUTPATIENT PROVIDER Notes to Outpatient Provider: f/u with PCP in one week. Continue PO Abx Bactrim for 8 more days. Put warm compressions over groin swelling area. 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 Pardo is a 57 year old female with a pmh of hypertension, hyperlipidemia, [place] , CVA, history of necrotizing fasciitis who presented to the ED with right inguinal region abscess and cellulitis extending down her right thigh. pt was admitted here and started her on empirical abx Zosyn and Vancomycin. She did failed out pt Abx Clindamycin therapy. She does have moderate hyponatremia too due to dehydration. Her symtpoms improved and her Na also got corrected with IV fluids. So will d/c her home with PO Abx Bactrim DS for 8 more days. Also noticed she does have DM2 HbA1C 7.4, so started her on Metformin. - Time Spent with Patient Total time spent providing and/or coordinating discharge services: - Discharge Medications Prescriptions: Lactobacillus [Culturelle] 1 each PO BID #30 cap.sprink metFORMIN [Glucophage] 500 mg PO BIDWM #60 tablet Nicotine Patch [Nicoderm] 14 mg TD DAILY #30 patch.td24 Sulfamethoxazole/Trimeth DS [Bactrim DS] 1 each PO BID #16 tablet Home Medications: Albuterol Sulfate [Ventolin Hfa] 2 puff IH Q6H 06/14/18 [History] Buspirone HCl [Buspar] 15 mg PO TID 10/09/17 [History] Cetirizine HCl 10 mg PO DAILY 10/09/17 [History] Cholecalciferol (Vitamin D3) [Vitamin D3] 1,000 mg PO BID 10/09/17 [History] Divalproex (12 HR) [Depakote (12 HR)] 500 mg PO TID 10/09/17 [History] Escitalopram [Lexapro] 1.5 tab PO DAILY 10/09/17 [History] Fluticasone/Vilanterol [Breo Ellipta 100-25 Mcg INH] 1 puff IH DAILY 10/09/17 [ History] LORazepam [Ativan] 0.5 mg PO TID PRN 10/09/17 [History] Lurasidone [Latuda] 40 mg PO DAILY 10/09/17 [History] Metoprolol [Lopressor] 25 mg PO BID 10/09/17 [History] OXcarbazepine [Oxcarbazepine] 300 mg PO QAM 10/09/17 [History] OXcarbazepine [Oxcarbazepine] 600 mg PO HS 10/09/17 [History] Pravastatin Sodium [Pravachol] 20 mg PO HS 10/09/17 [History] Tizanidine HCl [Zanaflex] 4 mg PO TID PRN 10/09/17 [History] Trazodone HCl 100 - 150 mg PO HS 10/09/17 [History] cloNIDine HCl [CloNIDine HCl] 0.1 mg PO HS 10/09/17 [History] cloZAPine [Clozaril] 100 mg PO BID 10/09/17 [History] hydroCHLOROthiazide [Hydrochlorothiazide] 25 mg PO DAILY 10/09/17 [History] Montelukast [Singulair] 10 mg PO HS 10/10/17 [History] Lactobacillus [Culturelle] 1 each PO BID #30 cap.sprink 10/11/17 [Rx] Nicotine Patch [Nicoderm] 14 mg TD DAILY #30 patch.td24 10/11/17 [Rx] Sulfamethoxazole/Trimeth DS [Bactrim DS] 1 each PO BID #16 tablet 10/11/17 [Rx] metFORMIN [Glucophage] 500 mg PO BIDWM #60 tablet 10/11/17 [Rx] Allergies/Adverse Reactions: 3 Allergy/AdvReac Type Severity Reaction Status Date / Time levofloxacin [From Levaquin] AdvReac Joint Pain Verified 10/09/17 20:55 Date of admission: 10/10/17 00:18 Primary care physician: Cici Kinsey - Constitutional Vitals: Temp Pulse Resp BP Pulse Ox 97.5 F L 72 16 142/84 96 10/11/17 08:08 10/11/17 08:08 10/11/17 08:08 10/11/17 08:08 10/11/17 08:08 General appearance: Present: A&O X 3, no acute distress, answers questions appropriately - Head Head exam: Present: atraumatic, normal inspection - Neck Neck exam general surgery: Present: supple - Respiratory Respiratory exam: Present: decreased breath sounds. Absent: rales, respiratory distress, rhonchi, wheezes - Cardiovascular Cardiovascular exam: Present: RRR, +S1, +S2. Absent: tachycardia - GI/Abdominal GI/Abdominal exam: Present: soft. Absent: rebound, rigid - Additional comments: Improving erythema, swelling in Rt groin area - Back Exam Back exam: Absent: CVA tenderness (L), CVA tenderness (R) - Neurological Exam Neurological exam: Present: alert, oriented X3 - Patient Status Disposition: Home, Self-Care Condition: Good Overall status at discharge: patient is back to baseline - Discharge Instructions Follow Up With: Cici Kinsey [Primary Care Provider] - 10/16/17 2:40 pm - Diet and Activity Activity: increase activity as tolerated Diet: low salt diet
[2017-10-11] MEDS ORDERED: OXcarbazepine 150 MG TABLET PO SCH (09:00)
[2017-10-11] MEDS: Divalproex (12 HR) 500 MG TABLET PO SCH (09:02)
[2017-10-11] MEDS: Loratadine 10 MG TABLET PO SCH (09:04)
[2017-10-11] MEDS: hydroCHLOROthiazide 25 MG TABLET PO SCH (09:04)
[2017-10-11] MEDS: Nicotine 14 MG PATCH.TD24 TD SCH (09:04)
[2017-10-11] MEDS: cloZAPine 100 MG TABLET PO SCH (09:04)
[2017-10-11] MEDS: Insulin LISPRO 300 UNITS/3 ML VIAL SQ SCH (09:05)
[2017-10-11] MEDS ORDERED: Aminoglycoside Consult 1 EACH MC ONE (09:31)
--- NOTE | 2017-10-13 06:36 | Electrocardiograph Report ---
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
== END 2017-10-11 09:32 | disposition home or self-care (01) | DRG 603 ==
LOC: EMEROO 17:30 → 3ANU 17:30 → SUATTDRO 10-10 00:18
PROVIDERS: ADMIT Internal Medicine; ATTEND Family Medicine

== ENCOUNTER 2019-09-28 23:05 | Observation (INO) ==
[2019-09-28] MEDS ORDERED: Ondansetron 4 MG/2 ML VIAL IVP ONE (23:27)
[2019-09-28] MEDS ORDERED: *HR* LORazepam 2 MG/ML VIAL IVP ONE (23:28)
[2019-09-28 23:43] LABS: Basophils % 0.4 %; Eosinophils # 0.3 K/mcL (0.0-0.6); Eosinophils % 2.6 %; Hematocrit 36.2 % (35.3-44.9); Hemoglobin 12.5 g/dL (11.5-15.4); Immature Granulocytes % 0.3 % (0-4); Lymphocytes # 3.1 K/mcL (0.6-4.6); Lymphocytes % 30.4 %; Mean Corpuscular HGB Conc 34.5 g/dL (31.6-35.5); Mean Corpuscular Hemoglobin 31.8 pg (28.0-33.3); Mean Corpuscular Volume 92.1 fL (83.0-100.0); Mean Platelet Volume 8.1 fL (9.4-12.4); Monocytes # 0.7 K/mcL (0.0-1.3); Monocytes % 7.2 %; Neutrophils # 6.1 K/mcL (1.6-8.9); Platelet Count 324 K/mcL (140-400); Red Blood Count 3.93 M/mcL (3.82-4.97); Red Cell Distribution Width 11.9 % (11.5-14.5); Segmented Neutrophils % 59.1 %; White Blood Count 10.3 K/mcL (4.3-11.1)
[2019-09-28] MEDS ORDERED: Lidocaine Viscous Oral Soln 15 ML SOLUTION MM ONE (23:45)
[2019-09-28 23:47] LABS: Bilirubin,Urine Negative (Negative); Blood,Urine Small (Negative); Clarity,Urine Clear (Clear); Color,Urine Yellow (Yellow); Glucose,Urine (UA) 100 mg/dL (Normal); Ketones,Urine Negative (Negative); Leukocyte Esterase,Urine Negative (Negative); Nitrite,Urine Negative (Negative); Protein,Urine Negative (Neg-Trace); Specific Gravity,Urine 1.019 (1.010-1.025); Urobilinogen,Urine Normal (Normal)
[2019-09-28 23:50] LABS: Bacteria,Urine None Seen per hpf (None-Few); Hyaline Casts,Urine None Seen per lpf (None-Few); Squamous Epithelial Cell,Urine Few per lpf (None-Few); WBC,Urine 0-3 per hpf (0-3)
[2019-09-29 00:11] LABS: Alanine Aminotransferase 11 Units/L (7-52); Albumin 4.7 g/dL (3.5-5.7); Alkaline Phosphatase 69 Units/L (34-104); Aspartate Amino Transferase 12 Units/L (13-39); BUN/Creatinine Ratio 11 (6-26); Bilirubin,Direct 0.1 mg/dL (0.0-0.2); Bilirubin,Indirect 0.2 mg/dL (0.0-1.0); Bilirubin,Total 0.3 mg/dL (0.3-1.0); Blood Urea Nitrogen 8 mg/dL (6-20); Calcium 9.8 mg/dL (8.6-10.3); Carbon Dioxide 22 mEq/L (23-29); Chloride 96 mEq/L (98-107); Globulin 2.3 g/dL (2.4-3.5); Glucose 120 mg/dL (70-105); Lipase 25 Units/L (11-82); Magnesium 1.9 mg/dL (1.6-2.6); Osmolality,Calculated 264 (280-300); Potassium 3.4 mEq/L (3.5-5.1); Sodium 127 mEq/L (136-145); Troponin I < 0.03 ng/mL (< 0.04); eGFR For African Americans > 60 (> 60); eGFR For Non-African Americans > 60 (> 60)
[2019-09-29] MEDS ORDERED: 0.9 % Sodium Chloride 1,000 ML IVC ONE (00:15)
[2019-09-29] MEDS ORDERED: Potassium Chloride Elixir 20 MEQ/15 ML UDC PO ONE (00:18)
[2019-09-29] MEDS ORDERED: *HR* Labetalol 20 MG/4 ML SYRINGE IVP ONE (00:18)
[2019-09-29 00:23] LABS: Amphetamine Screen,Urine Negative ng/mL (Cutoff=1000); Barbiturate Screen,Urine Negative ng/mL (Cutoff=200); Benzodiazepines Screen,Urine Positive ng/mL (Cutoff=200); Cannabinoid Screen,Urine Negative ng/mL (Cutoff = 50); Cocaine Screen,Urine Negative ng/mL (Cutoff= 300); Opiate Screen,Urine Negative ng/mL (Cutoff=300); Phencyclidine Screen,Urine Negative ng/mL (Cutoff=25)
[2019-09-29] MEDS ORDERED: Ziprasidone 10 MG in Water for inj. (sterile) 0.5 ML IM ONE (00:34)
[2019-09-29 00:47] LABS: Sodium, Urine 107.3 mEq/L
[2019-09-29 00:50] LABS: Acetaminophen < 10 mcg/mL (10-20); Ethanol < 10 mg/dL (Less than 10); Salicylate < 2.5 mg/dL (15.0-30.0)
[2019-09-29 01:03] LABS: Thyroid Stimulating Hormone 0.521 mcIU/mL (0.340-5.600)
[2019-09-29] MEDS ORDERED: Naloxone 0.4 MG/ML INJ IVP PRN (05:14)
[2019-09-29] MEDS ORDERED: *HR* LORazepam 2 MG/ML VIAL IVP ONE ×2 (06:09→06:30)
[2019-09-29] MEDS ORDERED: Dextrose Gel 15 GM/37.5 ML TUBE PO PRN ×2 (06:33)
[2019-09-29] MEDS ORDERED: D5% in Water 1,000 ML IVC PRN (06:33)
[2019-09-29] MEDS ORDERED: *HR* Dextrose 50 % in Water (Syg) 50 ML SYRINGE IVP PRN (06:33)
[2019-09-29] MEDS: Ondansetron 4 MG/2 ML VIAL IVP PRN ×2 (06:37→14:52)
[2019-09-29 07:24] LABS: Hematocrit 34.9 % (35.3-44.9); Hemoglobin 11.9 g/dL (11.5-15.4); Mean Corpuscular HGB Conc 34.1 g/dL (31.6-35.5); Mean Corpuscular Hemoglobin 32.1 pg (28.0-33.3); Mean Corpuscular Volume 94.1 fL (83.0-100.0); Mean Platelet Volume 8.3 fL (9.4-12.4); Platelet Count 301 K/mcL (140-400); Red Blood Count 3.71 M/mcL (3.82-4.97); Red Cell Distribution Width 12.1 % (11.5-14.5); White Blood Count 8.2 K/mcL (4.3-11.1)
[2019-09-29 07:42] LABS: BUN/Creatinine Ratio 7 (6-26); Blood Urea Nitrogen 5 mg/dL (6-20); Calcium 9.2 mg/dL (8.6-10.3); Carbon Dioxide 25 mEq/L (23-29); Chloride 100 mEq/L (98-107); Glucose 125 mg/dL (70-105); Osmolality,Calculated 269 (280-300); Potassium 3.8 mEq/L (3.5-5.1); Sodium 130 mEq/L (136-145); eGFR For African Americans > 60 (> 60); eGFR For Non-African Americans > 60 (> 60)
[2019-09-29] MEDS ORDERED: 0.9 % Sodium Chloride 1,000 ML IVC SCH (09:15)
[2019-09-29] MEDS: amLODIPine 5 MG TABLET PO SCH (10:03)
[2019-09-29] MEDS: Insulin LISPRO 300 UNITS/3 ML VIAL SQ SCH ×3 (10:04→16:18)
[2019-09-29] MEDS: Metoprolol XL (24 HR) Succ 25 MG TAB.ER.24H PO SCH (13:01)
[2019-09-29] MEDS: OXcarbazepine 150 MG TABLET PO SCH (13:02)
[2019-09-29] MEDS: cloZAPine 100 MG TABLET PO SCH (13:03)
[2019-09-29] MEDS: tiZANidine 4 MG TABLET PO PRN (14:06)
[2019-09-29] MEDS: *HR* LORazepam 0.5 MG TABLET PO PRN (14:06)
[2019-09-29] MEDS ORDERED: Acetaminophen 325 MG TABLET PO ONE (14:09)
[2019-09-29] MEDS: Nicotine 21 MG PATCH.TD24 TD SCH (14:51)
[2019-09-29] MEDS ORDERED: Metoprolol XL (24 HR) Succ 25 MG TAB.ER.24H PO SCH (18:00)
[2019-09-29] MEDS: *HR* Heparin 5,000 UNIT/ML VIAL SQ SCH (18:39)
[2019-09-29 19:50] LABS: BUN/Creatinine Ratio 6 (6-26); Blood Urea Nitrogen 5 mg/dL (6-20); Calcium 9.3 mg/dL (8.6-10.3); Carbon Dioxide 25 mEq/L (23-29); Chloride 101 mEq/L (98-107); Glucose 181 mg/dL (70-105); Osmolality,Calculated 276 (280-300); Potassium 3.8 mEq/L (3.5-5.1); Sodium 132 mEq/L (136-145); eGFR For African Americans > 60 (> 60); eGFR For Non-African Americans > 60 (> 60)
[2019-09-29] MEDS ORDERED: cloZAPine 100 MG TABLET PO SCH (21:00)
[2019-09-29] MEDS ORDERED: OXcarbazepine 150 MG TABLET PO SCH (21:00)
[2019-09-29] MEDS ORDERED: traZODone 50 MG TABLET PO PRN (21:00)
[2019-09-29] MEDS ORDERED: cloNIDine HCL 0.1 MG TABLET PO SCH (21:00)
[2019-09-30] MEDS: Ondansetron 4 MG/2 ML VIAL IVP PRN (02:15)
[2019-09-30] MEDS: tiZANidine 4 MG TABLET PO PRN (02:15)
[2019-09-30] MEDS: *HR* LORazepam 0.5 MG TABLET PO PRN (02:15)
[2019-09-30] MEDS: *HR* Heparin 5,000 UNIT/ML VIAL SQ SCH (06:03)
[2019-09-30 07:35] LABS: Basophils # 0.1 K/mcL (0.0-0.2); Basophils % 0.6 %; Eosinophils # 0.3 K/mcL (0.0-0.6); Eosinophils % 3.4 %; Hematocrit 35.4 % (35.3-44.9); Hemoglobin 11.7 g/dL (11.5-15.4); Immature Granulocytes % 0.2 % (0-4); Lymphocytes # 2.5 K/mcL (0.6-4.6); Lymphocytes % 27.9 %; Mean Corpuscular HGB Conc 33.1 g/dL (31.6-35.5); Mean Corpuscular Hemoglobin 31.7 pg (28.0-33.3); Mean Corpuscular Volume 95.9 fL (83.0-100.0); Mean Platelet Volume 8.1 fL (9.4-12.4); Monocytes # 0.7 K/mcL (0.0-1.3); Monocytes % 7.5 %; Neutrophils # 5.4 K/mcL (1.6-8.9); Platelet Count 303 K/mcL (140-400); Red Blood Count 3.69 M/mcL (3.82-4.97); Red Cell Distribution Width 12.4 % (11.5-14.5); Segmented Neutrophils % 60.4 %
[2019-09-30] MEDS: Insulin LISPRO 300 UNITS/3 ML VIAL SQ SCH ×2 (07:50→13:34)
[2019-09-30 07:57] LABS: BUN/Creatinine Ratio 10 (6-26); Blood Urea Nitrogen 8 mg/dL (6-20); Calcium 9.5 mg/dL (8.6-10.3); Carbon Dioxide 25 mEq/L (23-29); Chloride 104 mEq/L (98-107); Glucose 105 mg/dL (70-105); Magnesium 2.2 mg/dL (1.6-2.6); Osmolality,Calculated 277 (280-300); Phosphorous 3.5 mg/dL (2.7-4.5); Sodium 134 mEq/L (136-145); eGFR For African Americans > 60 (> 60); eGFR For Non-African Americans > 60 (> 60)
[2019-09-30] MEDS: amLODIPine 5 MG TABLET PO SCH (08:37)
[2019-09-30] MEDS: cloZAPine 100 MG TABLET PO SCH (08:38)
[2019-09-30] MEDS: Metoprolol XL (24 HR) Succ 25 MG TAB.ER.24H PO SCH (08:38)
[2019-09-30] MEDS: Nicotine 21 MG PATCH.TD24 TD SCH (08:38)
[2019-09-30] MEDS: OXcarbazepine 150 MG TABLET PO SCH (08:39)
[2019-09-30] MEDS ORDERED: Cholecalciferol (D-3) 1,000 UNIT (25MCG) TABLET PO SCH (09:00)
[2019-09-30 13:33] VITALS: BP 151/94
[2019-10-01 01:33] LABS: Valproate Free <7 ug/mL (7-23)
[2019-10-01 14:03] LABS: Valproate Total <7 ug/mL (50-125)
== END 2019-09-30 14:06 ==
LOC: EMEROOARM 23:05 → 3BNU 23:05 → SUATTDRO 09-29 03:25 → 3BNU 09-29 03:49
PROVIDERS: ADMIT Student in an Organized Health Care Education/Training Program; ATTEND Internal Medicine

== ENCOUNTER 2019-11-11 20:27 | Observation (INO) ==
[2019-11-11] MEDS ORDERED: 0.9 % Sodium Chloride 1,000 ML IVC ONE (20:45)
[2019-11-11] MEDS ORDERED: Naloxone 0.4 MG/ML INJ IVP ONE (20:45)
[2019-11-11 21:20] LABS: Basophils % 0.2 %; Eosinophils % 0.2 %; Hemoglobin 10.6 g/dL (11.5-15.4); Immature Granulocytes % 0.4 % (0-4); Lymphocytes # 1.6 K/mcL (0.6-4.6); Lymphocytes % 9.7 %; Mean Corpuscular HGB Conc 32.1 g/dL (31.6-35.5); Mean Corpuscular Hemoglobin 30.6 pg (28.0-33.3); Mean Corpuscular Volume 95.4 fL (83.0-100.0); Mean Platelet Volume 8.6 fL (9.4-12.4); Monocytes # 0.8 K/mcL (0.0-1.3); Monocytes % 4.8 %; Neutrophils # 13.8 K/mcL (1.6-8.9); Platelet Count 377 K/mcL (140-400); Red Blood Count 3.46 M/mcL (3.82-4.97); Segmented Neutrophils % 84.7 %; White Blood Count 16.3 K/mcL (4.3-11.1)
[2019-11-11 21:23] LABS: VBG HCO3 26 mEq/L (21-27); VBG PCO2 48 mmHg (41-51); VBG PH 7.35 pH Units (7.32-7.42); VBG PO2 41 mmHg (25-50)
[2019-11-11 21:43] LABS: Acetaminophen < 10 mcg/mL (10-20); Alanine Aminotransferase 16 Units/L (7-52); Albumin 4.1 g/dL (3.5-5.7); Albumin/Globulin Ratio 1.8 (1.1-2.2); Alkaline Phosphatase 83 Units/L (34-104); Aspartate Amino Transferase 11 Units/L (13-39); BUN/Creatinine Ratio 18 (6-26); Bilirubin,Direct 0.1 mg/dL (0.0-0.2); Bilirubin,Indirect 0.2 mg/dL (0.0-1.0); Bilirubin,Total 0.3 mg/dL (0.3-1.0); Blood Urea Nitrogen 14 mg/dL (6-20); Carbon Dioxide 25 mEq/L (23-29); Chloride 102 mEq/L (98-107); Ethanol < 10 mg/dL (Less than 10); Globulin 2.3 g/dL (2.4-3.5); Glucose 180 mg/dL (70-105); Osmolality,Calculated 287 (280-300); Potassium 3.7 mEq/L (3.5-5.1); Salicylate < 2.5 mg/dL (15.0-30.0); Sodium 136 mEq/L (136-145); Total Protein 6.4 g/dL (6.4-8.9); Troponin I < 0.03 ng/mL (< 0.04); eGFR For African Americans > 60 (> 60); eGFR For Non-African Americans > 60 (> 60)
[2019-11-11 21:56] LABS: Thyroid Stimulating Hormone 0.114 mcIU/mL (0.340-5.600)
[2019-11-11 22:27] LABS: Bilirubin,Urine Negative (Negative); Blood,Urine Negative (Negative); Clarity,Urine Turbid (Clear); Color,Urine Yellow (Yellow); Glucose,Urine (UA) 200 mg/dL (Normal); Hyaline Casts,Urine Few per lpf (None Seen); Ketones,Urine 10 mg/dL (Negative); Leukocyte Esterase,Urine Negative (Negative); Mucus,Urine Few per lpf (None-Few); Nitrite,Urine Negative (Negative); Protein,Urine 70 mg/dL (Neg-Trace); Specific Gravity,Urine 1.024 (1.010-1.025); Squamous Epithelial Cell,Urine Moderate per hpf (None-Few)
[2019-11-11 22:28] LABS: Amphetamine Screen,Urine Negative ng/mL (Cutoff=1000); Barbiturate Screen,Urine Negative ng/mL (Cutoff=200); Benzodiazepines Screen,Urine Negative ng/mL (Cutoff=200); Cannabinoid Screen,Urine Negative ng/mL (Cutoff = 50); Cocaine Screen,Urine Negative ng/mL (Cutoff= 300); Opiate Screen,Urine Negative ng/mL (Cutoff=300); Phencyclidine Screen,Urine Negative ng/mL (Cutoff=25)
[2019-11-11] MEDS ORDERED: 0.9 % Sodium Chloride 1,000 ML IVC SCH (23:45)
[2019-11-11] MEDS ORDERED: Ondansetron 4 MG/2 ML VIAL IVP PRN (23:57)
[2019-11-12] MEDS ORDERED: *HR* Dextrose 50 % in Water (Vial) 50 ML VIAL IVP PRN (01:29)
[2019-11-12] MEDS ORDERED: D5% in Water 1,000 ML IVC PRN (01:29)
[2019-11-12] MEDS ORDERED: Dextrose Gel 15 GM/37.5 ML TUBE PO PRN ×2 (01:29)
[2019-11-12] MEDS ORDERED: Acetaminophen 325 MG TABLET PO PRN (01:53)
[2019-11-12] MEDS: *HR* Heparin 5,000 UNIT/ML VIAL SQ SCH ×2 (05:41→14:03)
[2019-11-12 07:32] LABS: Basophils % 0.3 %; Eosinophils # 0.1 K/mcL (0.0-0.6); Eosinophils % 1.1 %; Hematocrit 27.2 % (35.3-44.9); Immature Granulocytes % 0.5 % (0-4); Lymphocytes # 2.9 K/mcL (0.6-4.6); Lymphocytes % 26.3 %; Mean Corpuscular Hemoglobin 30.6 pg (28.0-33.3); Mean Corpuscular Volume 95.8 fL (83.0-100.0); Mean Platelet Volume 8.5 fL (9.4-12.4); Monocytes # 0.8 K/mcL (0.0-1.3); Neutrophils # 7.2 K/mcL (1.6-8.9); Platelet Count 318 K/mcL (140-400); Red Blood Count 2.84 M/mcL (3.82-4.97); Red Cell Distribution Width 11.9 % (11.5-14.5); Segmented Neutrophils % 64.8 %; White Blood Count 11.1 K/mcL (4.3-11.1)
[2019-11-12 07:52] LABS: Hemoglobin 8.7 g/dL (11.5-15.4)
[2019-11-12 07:59] LABS: Alanine Aminotransferase 13 Units/L (7-52); Albumin 3.3 g/dL (3.5-5.7); Albumin/Globulin Ratio 1.9 (1.1-2.2); Alkaline Phosphatase 66 Units/L (34-104); Aspartate Amino Transferase 11 Units/L (13-39); BUN/Creatinine Ratio 16 (6-26); Bilirubin,Total 0.3 mg/dL (0.3-1.0); Blood Urea Nitrogen 9 mg/dL (6-20); Calcium 8.4 mg/dL (8.6-10.3); Carbon Dioxide 23 mEq/L (23-29); Chloride 109 mEq/L (98-107); Globulin 1.7 g/dL (2.4-3.5); Glucose 101 mg/dL (70-105); Osmolality,Calculated 285 (280-300); Potassium 3.7 mEq/L (3.5-5.1); Sodium 138 mEq/L (136-145); Troponin I < 0.03 ng/mL (< 0.04); eGFR For African Americans > 60 (> 60); eGFR For Non-African Americans > 60 (> 60)
[2019-11-12] MEDS: amLODIPine 5 MG TABLET PO SCH (18:10)
[2019-11-12] MEDS: Metoprolol XL (24 HR) Succ 50 MG TAB.ER.24H PO SCH (19:55)
[2019-11-12] MEDS: Cholecalciferol (D-3) 1,000 UNIT (25MCG) TABLET PO SCH (19:56)
[2019-11-13 03:25] LABS: Basophils % 0.4 %; Eosinophils # 0.1 K/mcL (0.0-0.6); Eosinophils % 1.3 %; Hematocrit 31.7 % (35.3-44.9); Immature Granulocytes % 0.4 % (0-4); Lymphocytes # 2.3 K/mcL (0.6-4.6); Lymphocytes % 24.6 %; Mean Corpuscular HGB Conc 33.1 g/dL (31.6-35.5); Mean Corpuscular Hemoglobin 31.5 pg (28.0-33.3); Mean Corpuscular Volume 95.2 fL (83.0-100.0); Mean Platelet Volume 8.5 fL (9.4-12.4); Monocytes # 0.7 K/mcL (0.0-1.3); Monocytes % 7.6 %; Neutrophils # 6.2 K/mcL (1.6-8.9); Platelet Count 332 K/mcL (140-400); Red Blood Count 3.33 M/mcL (3.82-4.97); Red Cell Distribution Width 11.8 % (11.5-14.5); Segmented Neutrophils % 65.7 %; White Blood Count 9.5 K/mcL (4.3-11.1)
[2019-11-13 03:30] LABS: Hemoglobin 10.5 g/dL (11.5-15.4)
[2019-11-13 03:38] LABS: BUN/Creatinine Ratio 10 (6-26); Blood Urea Nitrogen 5 mg/dL (6-20); Calcium 9.5 mg/dL (8.6-10.3); Carbon Dioxide 23 mEq/L (23-29); Chloride 109 mEq/L (98-107); Glucose 133 mg/dL (70-105); Osmolality,Calculated 287 (280-300); Potassium 3.7 mEq/L (3.5-5.1); Sodium 139 mEq/L (136-145); eGFR For African Americans > 60 (> 60); eGFR For Non-African Americans > 60 (> 60)
[2019-11-13] MEDS ORDERED: Insulin LISPRO 300 UNITS/3 ML VIAL SQ SCH (07:30)
[2019-11-13] MEDS: Metoprolol XL (24 HR) Succ 50 MG TAB.ER.24H PO SCH (08:53)
[2019-11-13] MEDS: Cholecalciferol (D-3) 1,000 UNIT (25MCG) TABLET PO SCH (08:53)
[2019-11-13] MEDS: amLODIPine 5 MG TABLET PO SCH (08:53)
[2019-11-13 11:49] VITALS: BP 161/98
== END 2019-11-13 13:05 ==
LOC: 3BNU 20:27 → EMEROOARM 20:27 → 3BNU 11-12 00:42
PROVIDERS: ADMIT Internal Medicine; ATTEND Internal Medicine

== ENCOUNTER 2020-01-12 18:06 | Observation (INO) ==
[2020-01-12] MEDS ORDERED: 0.9 % Sodium Chloride 1,000 ML IVC ONE (18:16)
[2020-01-12] MEDS ORDERED: Isovue-370 500 ML BOTTLE IVP ONE (18:17)
[2020-01-12 18:33] LABS: Basophils # 0.1 K/mcL (0.0-0.2); Basophils % 0.5 %; Eosinophils # 0.3 K/mcL (0.0-0.6); Eosinophils % 2.3 %; Hematocrit 31.5 % (35.3-44.9); Hemoglobin 10.2 g/dL (11.5-15.4); Immature Granulocytes % 0.5 % (0-4); Lymphocytes # 3.8 K/mcL (0.6-4.6); Lymphocytes % 28.6 %; Mean Corpuscular HGB Conc 32.4 g/dL (31.6-35.5); Mean Corpuscular Hemoglobin 29.8 pg (28.0-33.3); Mean Corpuscular Volume 92.1 fL (83.0-100.0); Mean Platelet Volume 8.5 fL (9.4-12.4); Monocytes # 0.8 K/mcL (0.0-1.3); Monocytes % 5.8 %; Neutrophils # 8.3 K/mcL (1.6-8.9); Platelet Count 368 K/mcL (140-400); Red Blood Count 3.42 M/mcL (3.82-4.97); Red Cell Distribution Width 13.2 % (11.5-14.5); Segmented Neutrophils % 62.3 %; White Blood Count 13.3 K/mcL (4.3-11.1)
[2020-01-12 18:37] LABS: Bilirubin,Urine Negative (Negative); Blood,Urine Negative (Negative); Clarity,Urine Clear (Clear); Color,Urine Colorless (Yellow); Glucose,Urine (UA) Normal (Normal); Ketones,Urine Negative (Negative); Leukocyte Esterase,Urine Negative (Negative); Nitrite,Urine Negative (Negative); Protein,Urine Negative (Neg-Trace); Specific Gravity,Urine < 1.005 (1.010-1.025); Urobilinogen,Urine Normal (Normal)
[2020-01-12 18:38] LABS: Prothrombin Time 10.8 Seconds (9.4-12.1)
[2020-01-12 18:40] LABS: Activated Partial Thrombo Time 36.8 Seconds (26.0-36.0)
[2020-01-12 18:45] LABS: Amphetamine Screen,Urine Negative ng/mL (Cutoff=1000); Barbiturate Screen,Urine Negative ng/mL (Cutoff=200); Benzodiazepines Screen,Urine Negative ng/mL (Cutoff=200); Cannabinoid Screen,Urine Negative ng/mL (Cutoff = 50); Cocaine Screen,Urine Negative ng/mL (Cutoff= 300); Opiate Screen,Urine Negative ng/mL (Cutoff=300); Phencyclidine Screen,Urine Negative ng/mL (Cutoff=25)
[2020-01-12 18:48] LABS: ABG Base Excess -1 mEq/L (-2 to 3); ABG HCO3 23 mEq/L (21-27); ABG Oxygen Saturation 98 % (95-98); ABG PCO2 32 mmHg (35-45); ABG PH 7.45 pH Units (7.32-7.45); ABG PO2 100 mmHg (85-104); ABG TCO2 23 mEq/L (20-26)
[2020-01-12] MEDS: Thiamine (B-1) 100 MG, Folic Acid 1 MG, MVI, adult with vitamin K 10 ML in 0.9 % Sodi... IVPB SCH (18:49)
[2020-01-12 19:10] LABS: Alanine Aminotransferase 11 Units/L (7-52); Albumin 3.8 g/dL (3.5-5.7); Albumin/Globulin Ratio 1.7 (1.1-2.2); Alkaline Phosphatase 65 Units/L (34-104); Aspartate Amino Transferase 12 Units/L (13-39); BUN/Creatinine Ratio 27 (6-26); Bilirubin,Direct 0.1 mg/dL (0.0-0.2); Bilirubin,Indirect 0.3 mg/dL (0.0-1.0); Bilirubin,Total 0.4 mg/dL (0.3-1.0); Blood Urea Nitrogen 20 mg/dL (6-20); Calcium 9.4 mg/dL (8.6-10.3); Carbon Dioxide 22 mEq/L (23-29); Chloride 97 mEq/L (98-107); Creatine Kinase 26 Units/L (30-223); Ethanol < 10 mg/dL (Less than 10); Globulin 2.3 g/dL (2.4-3.5); Glucose 149 mg/dL (70-105); Osmolality,Calculated 269 (280-300); Potassium 3.7 mEq/L (3.5-5.1); Sodium 127 mEq/L (136-145); Total Protein 6.1 g/dL (6.4-8.9); Troponin I < 0.03 ng/mL (< 0.04); eGFR For African Americans > 60 (> 60); eGFR For Non-African Americans > 60 (> 60)
[2020-01-12 19:23] LABS: Thyroid Stimulating Hormone 0.205 mcIU/mL (0.340-5.600)
[2020-01-12] MEDS ORDERED: *HR* LORazepam 2 MG/ML VIAL IVP ONE (22:56)
[2020-01-12] MEDS ORDERED: 0.9 % Sodium Chloride 1,000 ML IVC SCH (23:45)
[2020-01-12] MEDS ORDERED: Naloxone 0.4 MG/ML INJ IVP PRN (23:51)
[2020-01-13] MEDS ORDERED: *HR* Dextrose 50 % in Water (Vial) 50 ML VIAL IVP PRN (00:42)
[2020-01-13] MEDS ORDERED: D5% in Water 1,000 ML IVC PRN (00:42)
[2020-01-13] MEDS ORDERED: Dextrose Gel 15 GM/37.5 ML TUBE PO PRN ×2 (00:42)
[2020-01-13 01:36] LABS: Basophils % 0.4 %; Eosinophils # 0.3 K/mcL (0.0-0.6); Eosinophils % 2.4 %; Hematocrit 30.9 % (35.3-44.9); Hemoglobin 10.2 g/dL (11.5-15.4); Immature Granulocytes % 0.2 % (0-4); Lymphocytes # 2.6 K/mcL (0.6-4.6); Lymphocytes % 24.8 %; Mean Corpuscular Hemoglobin 30.7 pg (28.0-33.3); Mean Corpuscular Volume 93.1 fL (83.0-100.0); Mean Platelet Volume 8.7 fL (9.4-12.4); Monocytes # 0.7 K/mcL (0.0-1.3); Monocytes % 6.6 %; Neutrophils # 6.9 K/mcL (1.6-8.9); Platelet Count 364 K/mcL (140-400); Red Blood Count 3.32 M/mcL (3.82-4.97); Red Cell Distribution Width 13.1 % (11.5-14.5); Segmented Neutrophils % 65.6 %; White Blood Count 10.5 K/mcL (4.3-11.1)
[2020-01-13 01:52] LABS: Acetaminophen < 10 mcg/mL (10-20); Salicylate < 2.5 mg/dL (15.0-30.0)
[2020-01-13 01:53] LABS: Alanine Aminotransferase 10 Units/L (7-52); Albumin 3.5 g/dL (3.5-5.7); Albumin/Globulin Ratio 1.7 (1.1-2.2); Alkaline Phosphatase 59 Units/L (34-104); Aspartate Amino Transferase 11 Units/L (13-39); BUN/Creatinine Ratio 24 (6-26); Bilirubin,Total 0.3 mg/dL (0.3-1.0); Blood Urea Nitrogen 16 mg/dL (6-20); Calcium 9.1 mg/dL (8.6-10.3); Carbon Dioxide 23 mEq/L (23-29); Chloride 109 mEq/L (98-107); Globulin 2.1 g/dL (2.4-3.5); Glucose 125 mg/dL (70-105); Osmolality,Calculated 291 (280-300); Potassium 3.7 mEq/L (3.5-5.1); Sodium 139 mEq/L (136-145); Total Protein 5.6 g/dL (6.4-8.9); eGFR For African Americans > 60 (> 60); eGFR For Non-African Americans > 60 (> 60)
[2020-01-13] MEDS: Insulin LISPRO 300 UNITS/3 ML VIAL SQ SCH ×4 (05:23→23:06)
[2020-01-13] MEDS: *HR* Enoxaparin 40 MG/0.4 ML SYRINGE SQ SCH (05:29)
[2020-01-13 06:14] LABS: BUN/Creatinine Ratio 21 (6-26); Blood Urea Nitrogen 15 mg/dL (6-20); Calcium 9.2 mg/dL (8.6-10.3); Carbon Dioxide 22 mEq/L (23-29); Chloride 109 mEq/L (98-107); Glucose 133 mg/dL (70-105); Osmolality,Calculated 291 (280-300); Sodium 139 mEq/L (136-145); eGFR For African Americans > 60 (> 60); eGFR For Non-African Americans > 60 (> 60)
[2020-01-13 09:31] LABS: Triiodothyronine (T3) Free 2.85 pg/mL (2.50-3.90)
[2020-01-13 13:40] LABS: BUN/Creatinine Ratio 19 (6-26); Blood Urea Nitrogen 15 mg/dL (6-20); Calcium 9.6 mg/dL (8.6-10.3); Carbon Dioxide 22 mEq/L (23-29); Chloride 109 mEq/L (98-107); Glucose 171 mg/dL (70-105); Osmolality,Calculated 289 (280-300); Potassium 4.1 mEq/L (3.5-5.1); Sodium 137 mEq/L (136-145); eGFR For African Americans > 60 (> 60); eGFR For Non-African Americans > 60 (> 60)
[2020-01-13] MEDS ORDERED: *HR* LORazepam 2 MG/ML VIAL IVP PRN (14:21)
[2020-01-13] MEDS: *HR* LORazepam 2 MG/ML VIAL IVP PRN ×2 (14:42→23:14)
[2020-01-13 16:31] LABS: Adenovirus Not Detected (Not Detect); Bordetella Pertussis Not Detected (Not Detect); Chlamydophila pneumoniae Not Detected (Not Detect); Coronavirus 229E Not Detected (Not Detect); Coronavirus HKU1 Not Detected (Not Detect); Coronavirus NL63 Not Detected (Not Detect); Coronavirus OC43 Not Detected (Not Detect); Human Metapneumovirus Not Detected (Not Detect); Human Rhinovirus/Enterovirus Not Detected (Not Detect); Influenza A Subtype 2009 H1 Not Detected (Not Detect); Influenza B Not Detected (Not Detect); Mycoplasma pneumoniae Not Detected (Not Detect); Parainfluenza Virus 1 Not Detected (Not Detect); Parainfluenza Virus 2 Not Detected (Not Detect); Parainfluenza Virus 3 Not Detected (Not Detect); Parainfluenza Virus 4 Not Detected (Not Detect); Respiratory Syncytial Virus Not Detected (Not Detect); SARS-CoV-2 Not Detected (Not Detect)
[2020-01-13] MEDS: Thiamine (B-1) 100 MG, Folic Acid 1 MG, MVI, adult with vitamin K 10 ML in 0.9 % Sodi... IVPB SCH (18:50)
[2020-01-14 01:10] LABS: Hematocrit 29.9 % (35.3-44.9); Hemoglobin 9.4 g/dL (11.5-15.4); Mean Corpuscular HGB Conc 31.4 g/dL (31.6-35.5); Mean Corpuscular Hemoglobin 29.4 pg (28.0-33.3); Mean Corpuscular Volume 93.4 fL (83.0-100.0); Mean Platelet Volume 8.8 fL (9.4-12.4); Platelet Count 389 K/mcL (140-400); Red Cell Distribution Width 13.3 % (11.5-14.5)
[2020-01-14 01:34] LABS: BUN/Creatinine Ratio 21 (6-26); Blood Urea Nitrogen 13 mg/dL (6-20); Calcium 8.8 mg/dL (8.6-10.3); Carbon Dioxide 19 mEq/L (23-29); Chloride 112 mEq/L (98-107); Glucose 95 mg/dL (70-105); Osmolality,Calculated 286 (280-300); Potassium 3.8 mEq/L (3.5-5.1); Sodium 138 mEq/L (136-145); eGFR For African Americans > 60 (> 60); eGFR For Non-African Americans > 60 (> 60)
[2020-01-14] MEDS ORDERED: Bisacodyl 10 MG RECTAL SUPPOSITORY RC PRN (01:39)
[2020-01-14] MEDS ORDERED: Sennosides/Docusate Sodium TABLET PO PRN (01:42)
[2020-01-14] MEDS: Insulin LISPRO 300 UNITS/3 ML VIAL SQ SCH ×2 (05:07→12:16)
[2020-01-14] MEDS: *HR* Enoxaparin 40 MG/0.4 ML SYRINGE SQ SCH (05:11)
[2020-01-14] MEDS: *HR* LORazepam 2 MG/ML VIAL IVP PRN (10:02)
[2020-01-14 10:54] VITALS: BP 116/76
== END 2020-01-14 15:23 ==
LOC: 3BNU 18:06 → EMEROOARM 18:06 → 3BNU 21:46
PROVIDERS: ADMIT Internal Medicine; ATTEND Internal Medicine

== ENCOUNTER 2020-01-14 15:25 | Inpatient (IN) ==
[2020-01-14] MEDS ORDERED: haloperidoL 5 MG TABLET PO PRN (17:25)
[2020-01-14] MEDS ORDERED: *HR* LORazepam 1 MG TABLET PO PRN (17:25)
[2020-01-14] MEDS ORDERED: MOM Conc 10 ML UD.LIQ PO PRN (17:25)
[2020-01-14] MEDS ORDERED: Acetaminophen 325 MG TABLET PO PRN (17:25)
[2020-01-14] MEDS ORDERED: Haloperidol Lactate 5 MG/ML VIAL IM PRN (17:25)
[2020-01-14] MEDS ORDERED: Mag Hydrox/Al Hydrox/Simeth 30 ML UDC PO PRN (17:25)
[2020-01-14] MEDS ORDERED: *HR* LORazepam 2 MG/ML VIAL IM PRN (17:25)
[2020-01-14] MEDS ORDERED: Dextrose Gel 15 GM/37.5 ML TUBE PO PRN ×2 (17:34)
[2020-01-14] MEDS: Insulin LISPRO 300 UNITS/3 ML VIAL SQ SCH (22:00)
[2020-01-14] MEDS: cloZAPine 100 MG TABLET PO SCH (22:04)
[2020-01-14] MEDS: QUEtiapine Fumarate 25 MG TABLET PO PRN (22:04)
[2020-01-15] MEDS: Tolterodine LA (24 HR) 2 MG CAP.ER.24H PO SCH (08:53)
[2020-01-15] MEDS: *HR* Metformin 500 MG TABLET PO SCH (08:54)
[2020-01-15] MEDS: polyethylene glycoL 3350 17 GM POWD.PACK PO SCH (08:55)
[2020-01-15] MEDS: amLODIPine 5 MG TABLET PO SCH (08:55)
[2020-01-15] MEDS: Insulin LISPRO 300 UNITS/3 ML VIAL SQ SCH ×4 (08:56→20:20)
[2020-01-15] MEDS: Cholecalciferol (D-3) 1,000 UNIT (25MCG) TABLET PO SCH (08:58)
[2020-01-15] MEDS: hydrOXYzine pamoate 25 MG CAPSULE PO PRN ×2 (09:00→20:22)
[2020-01-15] MEDS: QUEtiapine Fumarate 25 MG TABLET PO PRN (20:21)
[2020-01-15] MEDS: cloZAPine 100 MG TABLET PO SCH (20:21)
[2020-01-16] MEDS: Insulin LISPRO 300 UNITS/3 ML VIAL SQ SCH ×4 (07:49→20:16)
[2020-01-16] MEDS: polyethylene glycoL 3350 17 GM POWD.PACK PO SCH (08:53)
[2020-01-16] MEDS: hydrOXYzine pamoate 25 MG CAPSULE PO PRN ×2 (08:54→20:27)
[2020-01-16] MEDS: *HR* Metformin 500 MG TABLET PO SCH (08:54)
[2020-01-16] MEDS: Cholecalciferol (D-3) 1,000 UNIT (25MCG) TABLET PO SCH (08:54)
[2020-01-16] MEDS: amLODIPine 5 MG TABLET PO SCH (10:51)
[2020-01-16] MEDS: Tolterodine LA (24 HR) 2 MG CAP.ER.24H PO SCH (10:51)
[2020-01-16] MEDS: cloZAPine 100 MG TABLET PO SCH (20:27)
[2020-01-16] MEDS: QUEtiapine Fumarate 25 MG TABLET PO PRN (20:28)
[2020-01-17] MEDS: Insulin LISPRO 300 UNITS/3 ML VIAL SQ SCH ×4 (07:57→21:02)
[2020-01-17] MEDS: polyethylene glycoL 3350 17 GM POWD.PACK PO SCH (09:08)
[2020-01-17] MEDS: amLODIPine 5 MG TABLET PO SCH (09:09)
[2020-01-17] MEDS: Tolterodine LA (24 HR) 2 MG CAP.ER.24H PO SCH (09:09)
[2020-01-17] MEDS: hydrOXYzine pamoate 25 MG CAPSULE PO PRN ×2 (09:09→20:33)
[2020-01-17] MEDS: Cholecalciferol (D-3) 1,000 UNIT (25MCG) TABLET PO SCH (09:10)
[2020-01-17] MEDS: *HR* Metformin 500 MG TABLET PO SCH (09:10)
[2020-01-17] MEDS: cloZAPine 100 MG TABLET PO SCH (20:33)
[2020-01-17] MEDS: QUEtiapine Fumarate 25 MG TABLET PO PRN (20:34)
[2020-01-18] MEDS: Insulin LISPRO 300 UNITS/3 ML VIAL SQ SCH ×4 (08:09→21:02)
[2020-01-18] MEDS: *HR* Metformin 500 MG TABLET PO SCH (09:24)
[2020-01-18] MEDS: Tolterodine LA (24 HR) 2 MG CAP.ER.24H PO SCH (09:24)
[2020-01-18] MEDS: Cholecalciferol (D-3) 1,000 UNIT (25MCG) TABLET PO SCH (09:25)
[2020-01-18] MEDS: polyethylene glycoL 3350 17 GM POWD.PACK PO SCH (09:27)
[2020-01-18] MEDS: amLODIPine 5 MG TABLET PO SCH (09:29)
[2020-01-18] MEDS: QUEtiapine Fumarate 25 MG TABLET PO PRN (21:31)
[2020-01-18] MEDS: cloZAPine 100 MG TABLET PO SCH (21:31)
[2020-01-19] MEDS: amLODIPine 5 MG TABLET PO SCH (10:00)
[2020-01-19] MEDS: Cholecalciferol (D-3) 1,000 UNIT (25MCG) TABLET PO SCH (10:01)
[2020-01-19] MEDS: Tolterodine LA (24 HR) 2 MG CAP.ER.24H PO SCH (10:01)
[2020-01-19] MEDS: *HR* Metformin 500 MG TABLET PO SCH (10:01)
[2020-01-19] MEDS: polyethylene glycoL 3350 17 GM POWD.PACK PO SCH (10:02)
[2020-01-19] MEDS: Insulin LISPRO 300 UNITS/3 ML VIAL SQ SCH ×4 (10:14→20:22)
[2020-01-19 11:01] LABS: Basophils # 0.1 K/mcL (0.0-0.2); Basophils % 0.6 %; Eosinophils # 0.1 K/mcL (0.0-0.6); Eosinophils % 1.6 %; Hematocrit 35.2 % (35.3-44.9); Immature Granulocytes % 0.2 % (0-4); Lymphocytes # 2.2 K/mcL (0.6-4.6); Lymphocytes % 26.9 %; Mean Corpuscular HGB Conc 32.7 g/dL (31.6-35.5); Mean Corpuscular Hemoglobin 30.3 pg (28.0-33.3); Mean Corpuscular Volume 92.6 fL (83.0-100.0); Mean Platelet Volume 8.5 fL (9.4-12.4); Monocytes # 0.5 K/mcL (0.0-1.3); Monocytes % 6.3 %; Neutrophils # 5.4 K/mcL (1.6-8.9); Platelet Count 408 K/mcL (140-400); Red Cell Distribution Width 13.2 % (11.5-14.5); Segmented Neutrophils % 64.4 %; White Blood Count 8.3 K/mcL (4.3-11.1)
[2020-01-19 11:02] LABS: Hemoglobin 11.5 g/dL (11.5-15.4)
[2020-01-19 11:23] LABS: Alanine Aminotransferase 17 Units/L (7-52); Albumin 4.1 g/dL (3.5-5.7); Albumin/Globulin Ratio 1.7 (1.1-2.2); Alkaline Phosphatase 65 Units/L (34-104); Aspartate Amino Transferase 15 Units/L (13-39); BUN/Creatinine Ratio 20 (6-26); Bilirubin,Total 0.4 mg/dL (0.3-1.0); Blood Urea Nitrogen 14 mg/dL (6-20); Calcium 9.7 mg/dL (8.6-10.3); Carbon Dioxide 22 mEq/L (23-29); Chloride 107 mEq/L (98-107); Globulin 2.4 g/dL (2.4-3.5); Glucose 115 mg/dL (70-105); Osmolality,Calculated 287 (280-300); Potassium 4.1 mEq/L (3.5-5.1); Sodium 138 mEq/L (136-145); Total Protein 6.5 g/dL (6.4-8.9); eGFR For African Americans > 60 (> 60); eGFR For Non-African Americans > 60 (> 60)
[2020-01-19 11:40] LABS: Thyroid Stimulating Hormone 0.576 mcIU/mL (0.340-5.600)
[2020-01-19] MEDS: hydrOXYzine pamoate 25 MG CAPSULE PO PRN (13:28)
[2020-01-19] MEDS: QUEtiapine Fumarate 25 MG TABLET PO PRN (20:13)
[2020-01-19] MEDS: cloZAPine 100 MG TABLET PO SCH (20:14)
[2020-01-20] MEDS: Insulin LISPRO 300 UNITS/3 ML VIAL SQ SCH ×4 (09:19→21:15)
[2020-01-20] MEDS: polyethylene glycoL 3350 17 GM POWD.PACK PO SCH (09:34)
[2020-01-20] MEDS: Tolterodine LA (24 HR) 2 MG CAP.ER.24H PO SCH (09:35)
[2020-01-20] MEDS: Cholecalciferol (D-3) 1,000 UNIT (25MCG) TABLET PO SCH (09:35)
[2020-01-20] MEDS: *HR* Metformin 500 MG TABLET PO SCH (09:37)
[2020-01-20] MEDS: amLODIPine 5 MG TABLET PO SCH (09:38)
[2020-01-20 11:23] LABS: Bilirubin,Urine Negative (Negative); Blood,Urine Negative (Negative); Clarity,Urine Clear (Clear); Color,Urine Light-Yellow (Yellow); Glucose,Urine (UA) Normal (Normal); Ketones,Urine 10 mg/dL (Negative); Leukocyte Esterase,Urine Negative (Negative); Nitrite,Urine Negative (Negative); PH,Urine 5.5 pH Units (5.0-8.0); Protein,Urine Trace mg/dL (Neg-Trace); Specific Gravity,Urine 1.018 (1.010-1.025); Urobilinogen,Urine Normal (Normal)
[2020-01-20] MEDS: cloZAPine 100 MG TABLET PO SCH (20:43)
[2020-01-21] MEDS: Tolterodine LA (24 HR) 2 MG CAP.ER.24H PO SCH (09:02)
[2020-01-21] MEDS: *HR* Metformin 500 MG TABLET PO SCH (09:03)
[2020-01-21] MEDS: amLODIPine 5 MG TABLET PO SCH (09:03)
[2020-01-21] MEDS: Cholecalciferol (D-3) 1,000 UNIT (25MCG) TABLET PO SCH (09:03)
[2020-01-21] MEDS: Insulin LISPRO 300 UNITS/3 ML VIAL SQ SCH ×4 (09:05→21:31)
[2020-01-21] MEDS: polyethylene glycoL 3350 17 GM POWD.PACK PO SCH (09:12)
[2020-01-21] MEDS: cloZAPine 100 MG TABLET PO SCH (21:30)
[2020-01-22] MEDS: Cholecalciferol (D-3) 1,000 UNIT (25MCG) TABLET PO SCH (08:33)
[2020-01-22] MEDS: Tolterodine LA (24 HR) 2 MG CAP.ER.24H PO SCH (08:33)
[2020-01-22] MEDS: *HR* Metformin 500 MG TABLET PO SCH (08:34)
[2020-01-22] MEDS: amLODIPine 5 MG TABLET PO SCH (08:34)
[2020-01-22] MEDS: polyethylene glycoL 3350 17 GM POWD.PACK PO SCH (08:35)
[2020-01-22] MEDS: Insulin LISPRO 300 UNITS/3 ML VIAL SQ SCH ×2 (09:55→14:02)
[2020-01-22] MEDS: cloZAPine 100 MG TABLET PO SCH (20:19)
[2020-01-23 02:07] LABS: Clozapine-N-Oxide Quant <100 ng/mL; Norclozapine Quant 125 ng/mL
[2020-01-23] MEDS: amLODIPine 5 MG TABLET PO SCH (08:15)
[2020-01-23] MEDS: Cholecalciferol (D-3) 1,000 UNIT (25MCG) TABLET PO SCH (08:15)
[2020-01-23] MEDS: *HR* Metformin 500 MG TABLET PO SCH (08:15)
[2020-01-23] MEDS: Tolterodine LA (24 HR) 2 MG CAP.ER.24H PO SCH (08:16)
[2020-01-23] MEDS: polyethylene glycoL 3350 17 GM POWD.PACK PO SCH (08:21)
[2020-01-23] MEDS ORDERED: *HR* LORazepam 1 MG TABLET PO ONE (08:40)
[2020-01-23 09:55] LABS: Clozapine Quant 202 ng/mL
[2020-01-23 12:53] VITALS: BP 84/54
[2020-01-23 13:31] LABS: Basophils # 0.1 K/mcL (0.0-0.2); Basophils % 0.4 %; Eosinophils # 0.1 K/mcL (0.0-0.6); Eosinophils % 0.6 %; Hematocrit 40.3 % (35.3-44.9); Hemoglobin 12.7 g/dL (11.5-15.4); Immature Granulocytes % 0.4 % (0-4); Lymphocytes % 17.3 %; Mean Corpuscular HGB Conc 31.5 g/dL (31.6-35.5); Mean Corpuscular Hemoglobin 29.6 pg (28.0-33.3); Mean Corpuscular Volume 93.9 fL (83.0-100.0); Monocytes # 0.9 K/mcL (0.0-1.3); Neutrophils # 13.2 K/mcL (1.6-8.9); Platelet Count 509 K/mcL (140-400); Red Blood Count 4.29 M/mcL (3.82-4.97); Red Cell Distribution Width 13.2 % (11.5-14.5); Segmented Neutrophils % 76.3 %
[2020-01-23 13:32] LABS: White Blood Count 17.3 K/mcL (4.3-11.1)
[2020-01-23 13:52] LABS: Alanine Aminotransferase 16 Units/L (7-52); Albumin 4.6 g/dL (3.5-5.7); Albumin/Globulin Ratio 1.7 (1.1-2.2); Alkaline Phosphatase 72 Units/L (34-104); Aspartate Amino Transferase 13 Units/L (13-39); BUN/Creatinine Ratio 20 (6-26); Bilirubin,Total 0.3 mg/dL (0.3-1.0); Blood Urea Nitrogen 19 mg/dL (6-20); Calcium 10.8 mg/dL (8.6-10.3); Carbon Dioxide 23 mEq/L (23-29); Chloride 104 mEq/L (98-107); Glucose 119 mg/dL (70-105); Magnesium 1.9 mg/dL (1.6-2.6); Osmolality,Calculated 291 (280-300); Potassium 3.9 mEq/L (3.5-5.1); Sodium 139 mEq/L (136-145); Total Protein 7.3 g/dL (6.4-8.9); eGFR For African Americans > 60 (> 60); eGFR For Non-African Americans > 60 (> 60)
[2020-01-23 13:53] LABS: Globulin 2.7 g/dL (2.4-3.5); Troponin I < 0.03 ng/mL (< 0.04)
[2020-01-23 14:07] LABS: Thyroid Stimulating Hormone 0.526 mcIU/mL (0.340-5.600)
[2020-01-23] MEDS ORDERED: *HR* LORazepam 1 MG TABLET PO SCH (15:00)
== END 2020-01-23 13:25 | disposition other institution (70) | DRG 885 ==
LOC: 1ANU 15:25
PROVIDERS: ADMIT Psychiatry & Neurology Forensic Psychiatry; ATTEND Psychiatry & Neurology Forensic Psychiatry

== ENCOUNTER 2020-01-23 11:35 | Observation (INO) ==
[2020-01-23] MEDS ORDERED: Ondansetron 4 MG/2 ML VIAL IVP PRN (13:40)
[2020-01-23] MEDS ORDERED: Naloxone 0.4 MG/ML INJ IVP PRN (13:40)
[2020-01-23] MEDS: *HR* LORazepam 1 MG TABLET PO SCH ×2 (14:57→20:33)
[2020-01-23 14:58] LABS: Prothrombin Time 11.9 Seconds (9.4-12.1)
[2020-01-23] MEDS ORDERED: Dextrose Gel 15 GM/37.5 ML TUBE PO PRN ×2 (16:06)
[2020-01-23] MEDS ORDERED: *HR* Dextrose 50 % in Water (Vial) 50 ML VIAL IVP PRN (16:06)
[2020-01-23] MEDS ORDERED: D5% in Water 1,000 ML IVC PRN (16:06)
[2020-01-23] MEDS ORDERED: D5% in 0.9% NACL 1,000 ML IVC SCH (16:15)
[2020-01-23] MEDS: Insulin LISPRO 300 UNITS/3 ML VIAL SQ SCH ×2 (17:19→20:29)
[2020-01-23] MEDS: cloZAPine 100 MG TABLET PO SCH (20:34)
[2020-01-24 05:32] LABS: Basophils % 0.4 %; Eosinophils # 0.2 K/mcL (0.0-0.6); Eosinophils % 1.8 %; Hematocrit 32.8 % (35.3-44.9); Immature Granulocytes % 0.5 % (0-4); Lymphocytes # 2.4 K/mcL (0.6-4.6); Mean Corpuscular HGB Conc 31.7 g/dL (31.6-35.5); Mean Corpuscular Hemoglobin 29.5 pg (28.0-33.3); Mean Corpuscular Volume 92.9 fL (83.0-100.0); Mean Platelet Volume 8.9 fL (9.4-12.4); Monocytes # 0.7 K/mcL (0.0-1.3); Monocytes % 6.7 %; Neutrophils # 7.1 K/mcL (1.6-8.9); Platelet Count 356 K/mcL (140-400); Red Blood Count 3.53 M/mcL (3.82-4.97); Red Cell Distribution Width 13.2 % (11.5-14.5); Segmented Neutrophils % 67.6 %; White Blood Count 10.5 K/mcL (4.3-11.1)
[2020-01-24 05:37] LABS: Hemoglobin 10.4 g/dL (11.5-15.4)
[2020-01-24 05:48] LABS: BUN/Creatinine Ratio 26 (6-26); Blood Urea Nitrogen 21 mg/dL (6-20); Calcium 9.6 mg/dL (8.6-10.3); Carbon Dioxide 24 mEq/L (23-29); Chloride 108 mEq/L (98-107); Glucose 127 mg/dL (70-105); Magnesium 1.8 mg/dL (1.6-2.6); Osmolality,Calculated 291 (280-300); Potassium 3.7 mEq/L (3.5-5.1); Sodium 138 mEq/L (136-145); eGFR For African Americans > 60 (> 60); eGFR For Non-African Americans > 60 (> 60)
[2020-01-24] MEDS: *HR* Enoxaparin 40 MG/0.4 ML SYRINGE SQ SCH (06:01)
[2020-01-24] MEDS: Insulin LISPRO 300 UNITS/3 ML VIAL SQ SCH ×4 (10:20→20:29)
[2020-01-24] MEDS: *HR* LORazepam 1 MG TABLET PO SCH ×3 (10:28→20:33)
[2020-01-24] MEDS: Tolterodine LA (24 HR) 2 MG CAP.ER.24H PO SCH (10:29)
[2020-01-24] MEDS: amLODIPine 5 MG TABLET PO SCH (10:29)
[2020-01-24] MEDS: Cholecalciferol (D-3) 1,000 UNIT (25MCG) TABLET PO SCH (10:29)
[2020-01-24] MEDS: 0.9 % Sodium Chloride 1,000 ML IVC SCH ×2 (10:32→21:04)
[2020-01-24 13:33] LABS: Bilirubin,Urine Negative (Negative); Blood,Urine Trace (Negative); Calcium Oxalate Crystals,Urine Present; Clarity,Urine Turbid (Clear); Color,Urine Yellow (Yellow); Glucose,Urine (UA) 150 mg/dL (Normal); Hyaline Casts,Urine Few per lpf (None Seen); Ketones,Urine Negative (Negative); Leukocyte Esterase,Urine Moderate (Negative); Mucus,Urine Few per lpf (None-Few); Nitrite,Urine Negative (Negative); PH,Urine 5.5 pH Units (5.0-8.0); Protein,Urine 30 mg/dL (Neg-Trace); RBC,Urine 15-30 per hpf (0-3); Renal Epithelial Cells,Urine Many per hpf (None-Few); Specific Gravity,Urine 1.028 (1.010-1.025); Squamous Epithelial Cell,Urine Few per hpf (None-Few); Transitional Epi Cells,Urine Moderate per hpf (None-Few); Urobilinogen,Urine Normal (Normal); WBC,Urine 30-50 per hpf (0-3)
[2020-01-24] MEDS: cloZAPine 100 MG TABLET PO SCH (20:33)
[2020-01-25] MEDS: 0.9 % Sodium Chloride 1,000 ML IVC SCH ×2 (05:10→08:27)
[2020-01-25 05:47] LABS: Hematocrit 31.8 % (35.3-44.9); Hemoglobin 9.9 g/dL (11.5-15.4); Mean Corpuscular HGB Conc 31.1 g/dL (31.6-35.5); Mean Corpuscular Hemoglobin 29.7 pg (28.0-33.3); Mean Corpuscular Volume 95.5 fL (83.0-100.0); Mean Platelet Volume 8.8 fL (9.4-12.4); Platelet Count 324 K/mcL (140-400); Red Blood Count 3.33 M/mcL (3.82-4.97); Red Cell Distribution Width 13.1 % (11.5-14.5); White Blood Count 8.4 K/mcL (4.3-11.1)
[2020-01-25 05:57] LABS: BUN/Creatinine Ratio 21 (6-26); Blood Urea Nitrogen 12 mg/dL (6-20); Carbon Dioxide 22 mEq/L (23-29); Chloride 113 mEq/L (98-107); Glucose 131 mg/dL (70-105); Osmolality,Calculated 290 (280-300); Potassium 4.1 mEq/L (3.5-5.1); Sodium 139 mEq/L (136-145); eGFR For African Americans > 60 (> 60); eGFR For Non-African Americans > 60 (> 60)
[2020-01-25] MEDS: *HR* Enoxaparin 40 MG/0.4 ML SYRINGE SQ SCH (06:09)
[2020-01-25] MEDS: Insulin LISPRO 300 UNITS/3 ML VIAL SQ SCH (08:11)
[2020-01-25] MEDS: *HR* LORazepam 1 MG TABLET PO SCH (08:24)
[2020-01-25] MEDS: Tolterodine LA (24 HR) 2 MG CAP.ER.24H PO SCH (08:24)
[2020-01-25] MEDS: Cholecalciferol (D-3) 1,000 UNIT (25MCG) TABLET PO SCH (08:24)
[2020-01-25] MEDS: amLODIPine 5 MG TABLET PO SCH (08:25)
[2020-01-25 11:53] VITALS: BP 122/79
== END 2020-01-25 12:00 ==
LOC: 3BNU → SUATTDRO 13:35
PROVIDERS: ADMIT Pharmacist; ATTEND Internal Medicine

== ENCOUNTER 2020-01-25 12:14 | Inpatient (IN) ==
[2020-01-25] MEDS ORDERED: *HR* LORazepam 2 MG/ML VIAL IM PRN (13:00)
[2020-01-25] MEDS ORDERED: Ibuprofen 400 MG TABLET PO PRN (13:00)
[2020-01-25] MEDS ORDERED: *HR* LORazepam 1 MG TABLET PO PRN (13:00)
[2020-01-25] MEDS ORDERED: MOM Conc 10 ML UD.LIQ PO PRN (13:00)
[2020-01-25] MEDS ORDERED: haloperidoL 5 MG TABLET PO PRN (13:00)
[2020-01-25] MEDS ORDERED: Mag Hydrox/Al Hydrox/Simeth 30 ML UDC PO PRN (13:00)
[2020-01-25] MEDS ORDERED: Haloperidol Lactate 5 MG/ML VIAL IM PRN (13:00)
[2020-01-25] MEDS: *HR* LORazepam 1 MG TABLET PO SCH ×2 (19:15→20:10)
[2020-01-25] MEDS: cloZAPine 100 MG TABLET PO SCH (20:10)
[2020-01-25] MEDS: Cholecalciferol (D-3) 1,000 UNIT (25MCG) TABLET PO SCH (20:11)
[2020-01-26] MEDS: Cholecalciferol (D-3) 1,000 UNIT (25MCG) TABLET PO SCH ×2 (09:20→20:18)
[2020-01-26] MEDS: *HR* Metformin 500 MG TABLET PO SCH (09:20)
[2020-01-26] MEDS: *HR* LORazepam 1 MG TABLET PO SCH ×3 (09:20→20:20)
[2020-01-26] MEDS: Tolterodine LA (24 HR) 4 MG CAP.ER.24H PO SCH (09:21)
[2020-01-26] MEDS: amLODIPine 5 MG TABLET PO SCH (09:21)
[2020-01-26] MEDS: polyethylene glycoL 3350 17 GM POWD.PACK PO SCH (09:28)
[2020-01-26] MEDS: cloZAPine 100 MG TABLET PO SCH (20:18)
[2020-01-27] MEDS: Tolterodine LA (24 HR) 4 MG CAP.ER.24H PO SCH (08:56)
[2020-01-27] MEDS: *HR* LORazepam 1 MG TABLET PO SCH ×3 (08:56→21:11)
[2020-01-27] MEDS: *HR* Metformin 500 MG TABLET PO SCH (08:57)
[2020-01-27] MEDS: Cholecalciferol (D-3) 1,000 UNIT (25MCG) TABLET PO SCH ×2 (08:57→21:16)
[2020-01-27] MEDS: amLODIPine 5 MG TABLET PO SCH (08:57)
[2020-01-27] MEDS: polyethylene glycoL 3350 17 GM POWD.PACK PO SCH (09:22)
[2020-01-27] MEDS: cloZAPine 100 MG TABLET PO SCH (21:16)
[2020-01-28] MEDS: Tolterodine LA (24 HR) 4 MG CAP.ER.24H PO SCH (08:36)
[2020-01-28] MEDS: *HR* LORazepam 1 MG TABLET PO SCH ×3 (08:36→21:29)
[2020-01-28] MEDS: *HR* Metformin 500 MG TABLET PO SCH (08:36)
[2020-01-28] MEDS: amLODIPine 5 MG TABLET PO SCH (08:36)
[2020-01-28] MEDS: Cholecalciferol (D-3) 1,000 UNIT (25MCG) TABLET PO SCH ×2 (08:37→21:29)
[2020-01-28] MEDS: polyethylene glycoL 3350 17 GM POWD.PACK PO SCH (08:40)
[2020-01-28] MEDS: cloZAPine 100 MG TABLET PO SCH (21:29)
[2020-01-29] MEDS: amLODIPine 5 MG TABLET PO SCH (09:24)
[2020-01-29] MEDS: *HR* LORazepam 1 MG TABLET PO SCH ×3 (09:32→20:11)
[2020-01-29] MEDS: Tolterodine LA (24 HR) 4 MG CAP.ER.24H PO SCH (09:33)
[2020-01-29] MEDS: Cholecalciferol (D-3) 1,000 UNIT (25MCG) TABLET PO SCH ×2 (09:33→20:04)
[2020-01-29] MEDS: *HR* Metformin 500 MG TABLET PO SCH (09:33)
[2020-01-29] MEDS: polyethylene glycoL 3350 17 GM POWD.PACK PO SCH (09:34)
[2020-01-29] MEDS: cloZAPine 100 MG TABLET PO SCH (20:11)
[2020-01-30] MEDS: Cholecalciferol (D-3) 1,000 UNIT (25MCG) TABLET PO SCH ×2 (08:16→20:06)
[2020-01-30] MEDS: *HR* Metformin 500 MG TABLET PO SCH (08:16)
[2020-01-30] MEDS: Tolterodine LA (24 HR) 4 MG CAP.ER.24H PO SCH (08:16)
[2020-01-30] MEDS: *HR* LORazepam 1 MG TABLET PO SCH ×2 (08:17→20:06)
[2020-01-30] MEDS: amLODIPine 5 MG TABLET PO SCH (08:18)
[2020-01-30] MEDS: polyethylene glycoL 3350 17 GM POWD.PACK PO SCH (08:18)
[2020-01-30] MEDS: cloZAPine 100 MG TABLET PO SCH (20:06)
[2020-01-31] MEDS: traZODone 50 MG TABLET PO PRN ×2 (01:36→20:34)
[2020-01-31] MEDS: hydrOXYzine pamoate 25 MG CAPSULE PO PRN (01:36)
[2020-01-31] MEDS: Cholecalciferol (D-3) 1,000 UNIT (25MCG) TABLET PO SCH ×2 (08:19→20:33)
[2020-01-31] MEDS: Tolterodine LA (24 HR) 4 MG CAP.ER.24H PO SCH (08:20)
[2020-01-31] MEDS: *HR* Metformin 500 MG TABLET PO SCH (08:20)
[2020-01-31] MEDS: *HR* LORazepam 1 MG TABLET PO SCH ×2 (08:20→20:33)
[2020-01-31] MEDS: polyethylene glycoL 3350 17 GM POWD.PACK PO SCH (08:25)
[2020-01-31] MEDS: cloZAPine 100 MG TABLET PO SCH (20:33)
[2020-02-01] MEDS: Cholecalciferol (D-3) 1,000 UNIT (25MCG) TABLET PO SCH ×2 (08:12→20:00)
[2020-02-01] MEDS: Tolterodine LA (24 HR) 4 MG CAP.ER.24H PO SCH (08:13)
[2020-02-01] MEDS: *HR* Metformin 500 MG TABLET PO SCH (08:13)
[2020-02-01] MEDS: *HR* LORazepam 1 MG TABLET PO SCH ×2 (08:14→19:59)
[2020-02-01] MEDS: polyethylene glycoL 3350 17 GM POWD.PACK PO SCH (08:15)
[2020-02-01] MEDS: traZODone 50 MG TABLET PO PRN (19:59)
[2020-02-01] MEDS: cloZAPine 100 MG TABLET PO SCH (20:00)
[2020-02-02] MEDS: Cholecalciferol (D-3) 1,000 UNIT (25MCG) TABLET PO SCH ×2 (08:13→20:26)
[2020-02-02] MEDS: *HR* Metformin 500 MG TABLET PO SCH (08:14)
[2020-02-02] MEDS: Tolterodine LA (24 HR) 4 MG CAP.ER.24H PO SCH (08:14)
[2020-02-02] MEDS: *HR* LORazepam 1 MG TABLET PO SCH ×2 (08:14→20:26)
[2020-02-02] MEDS: polyethylene glycoL 3350 17 GM POWD.PACK PO SCH (08:17)
[2020-02-02] MEDS: cloZAPine 100 MG TABLET PO SCH (20:25)
[2020-02-03] MEDS: hydrOXYzine pamoate 25 MG CAPSULE PO PRN (07:08)
[2020-02-03] MEDS: Cholecalciferol (D-3) 1,000 UNIT (25MCG) TABLET PO SCH ×2 (08:05→20:23)
[2020-02-03] MEDS: Tolterodine LA (24 HR) 4 MG CAP.ER.24H PO SCH (08:05)
[2020-02-03] MEDS: *HR* LORazepam 1 MG TABLET PO SCH ×2 (08:05→20:23)
[2020-02-03] MEDS: *HR* Metformin 500 MG TABLET PO SCH (08:06)
[2020-02-03] MEDS: polyethylene glycoL 3350 17 GM POWD.PACK PO SCH (08:07)
[2020-02-03] MEDS: cloZAPine 100 MG TABLET PO SCH (20:23)
[2020-02-04] MEDS: Cholecalciferol (D-3) 1,000 UNIT (25MCG) TABLET PO SCH ×2 (08:33→20:25)
[2020-02-04] MEDS: *HR* LORazepam 1 MG TABLET PO SCH ×2 (08:33→20:25)
[2020-02-04] MEDS: Tolterodine LA (24 HR) 4 MG CAP.ER.24H PO SCH (08:33)
[2020-02-04] MEDS: *HR* Metformin 500 MG TABLET PO SCH (08:34)
[2020-02-04] MEDS: polyethylene glycoL 3350 17 GM POWD.PACK PO SCH (08:36)
[2020-02-04] MEDS: cloZAPine 100 MG TABLET PO SCH (20:26)
[2020-02-05] MEDS: *HR* Metformin 500 MG TABLET PO SCH (08:23)
[2020-02-05] MEDS: Tolterodine LA (24 HR) 4 MG CAP.ER.24H PO SCH (08:23)
[2020-02-05] MEDS: *HR* LORazepam 1 MG TABLET PO SCH ×2 (08:24→20:05)
[2020-02-05] MEDS: Cholecalciferol (D-3) 1,000 UNIT (25MCG) TABLET PO SCH ×2 (08:24→20:05)
[2020-02-05] MEDS: polyethylene glycoL 3350 17 GM POWD.PACK PO SCH (09:31)
[2020-02-05] MEDS: hydrOXYzine pamoate 25 MG CAPSULE PO PRN (14:07)
[2020-02-05] MEDS: cloZAPine 100 MG TABLET PO SCH (20:05)
[2020-02-06] MEDS: Tolterodine LA (24 HR) 4 MG CAP.ER.24H PO SCH (08:31)
[2020-02-06] MEDS: *HR* Metformin 500 MG TABLET PO SCH (08:32)
[2020-02-06] MEDS: Cholecalciferol (D-3) 1,000 UNIT (25MCG) TABLET PO SCH ×2 (08:32→20:18)
[2020-02-06] MEDS: *HR* LORazepam 1 MG TABLET PO SCH ×2 (08:33→20:20)
[2020-02-06] MEDS: polyethylene glycoL 3350 17 GM POWD.PACK PO SCH (08:35)
[2020-02-06] MEDS: cloZAPine 100 MG TABLET PO SCH (20:21)
[2020-02-07] MEDS: *HR* Metformin 500 MG TABLET PO SCH (08:35)
[2020-02-07] MEDS: Cholecalciferol (D-3) 1,000 UNIT (25MCG) TABLET PO SCH ×2 (08:36→19:59)
[2020-02-07] MEDS: *HR* LORazepam 1 MG TABLET PO SCH ×2 (08:36→19:59)
[2020-02-07] MEDS: Tolterodine LA (24 HR) 4 MG CAP.ER.24H PO SCH (08:36)
[2020-02-07] MEDS: polyethylene glycoL 3350 17 GM POWD.PACK PO SCH (08:38)
[2020-02-07] MEDS: cloZAPine 100 MG TABLET PO SCH (19:58)
[2020-02-08] MEDS: *HR* LORazepam 1 MG TABLET PO SCH ×2 (08:51→20:22)
[2020-02-08] MEDS: Cholecalciferol (D-3) 1,000 UNIT (25MCG) TABLET PO SCH ×2 (08:52→20:22)
[2020-02-08] MEDS: *HR* Metformin 500 MG TABLET PO SCH (08:52)
[2020-02-08] MEDS: Tolterodine LA (24 HR) 4 MG CAP.ER.24H PO SCH (08:52)
[2020-02-08] MEDS: polyethylene glycoL 3350 17 GM POWD.PACK PO SCH (08:54)
[2020-02-08] MEDS: cloZAPine 100 MG TABLET PO SCH (20:22)
[2020-02-09] MEDS: *HR* Metformin 500 MG TABLET PO SCH (08:14)
[2020-02-09] MEDS: Tolterodine LA (24 HR) 4 MG CAP.ER.24H PO SCH (08:14)
[2020-02-09] MEDS: Cholecalciferol (D-3) 1,000 UNIT (25MCG) TABLET PO SCH ×2 (08:15→20:13)
[2020-02-09] MEDS: *HR* LORazepam 1 MG TABLET PO SCH ×2 (08:15→20:13)
[2020-02-09] MEDS: polyethylene glycoL 3350 17 GM POWD.PACK PO SCH (08:16)
[2020-02-09] MEDS: hydrOXYzine pamoate 25 MG CAPSULE PO PRN (19:44)
[2020-02-09] MEDS: cloZAPine 100 MG TABLET PO SCH (20:13)
[2020-02-10] MEDS: Cholecalciferol (D-3) 1,000 UNIT (25MCG) TABLET PO SCH ×2 (08:08→20:08)
[2020-02-10] MEDS: Tolterodine LA (24 HR) 4 MG CAP.ER.24H PO SCH (08:08)
[2020-02-10] MEDS: *HR* Metformin 500 MG TABLET PO SCH (08:08)
[2020-02-10] MEDS: *HR* LORazepam 1 MG TABLET PO SCH ×2 (08:09→20:08)
[2020-02-10] MEDS: polyethylene glycoL 3350 17 GM POWD.PACK PO SCH (08:11)
[2020-02-10] MEDS: hydrOXYzine pamoate 25 MG CAPSULE PO PRN (20:07)
[2020-02-10] MEDS: cloZAPine 100 MG TABLET PO SCH (20:07)
[2020-02-11] MEDS: Tolterodine LA (24 HR) 4 MG CAP.ER.24H PO SCH (09:20)
[2020-02-11] MEDS: Cholecalciferol (D-3) 1,000 UNIT (25MCG) TABLET PO SCH (09:20)
[2020-02-11] MEDS: *HR* Metformin 500 MG TABLET PO SCH (09:20)
[2020-02-11] MEDS: *HR* LORazepam 1 MG TABLET PO SCH (09:20)
[2020-02-11] MEDS: polyethylene glycoL 3350 17 GM POWD.PACK PO SCH (09:22)
[2020-02-11 09:23] VITALS: BP 105/68
== END 2020-02-11 17:25 | DRG 885 ==
LOC: 1ANU 12:14 → SUATTDRO 12:14
PROVIDERS: ADMIT Psychiatry & Neurology Psychiatry; ATTEND Psychiatry & Neurology Psychiatry

== ENCOUNTER 2021-12-24 08:46 | Inpatient (IN) ==
[2021-12-24] MEDS ORDERED: 0.9 % Sodium Chloride 1,000 ML IVC ONE (09:50)
[2021-12-24 10:57] LABS: Basophils % 0.2 %; Eosinophils # 0.1 K/mcL (0.0-0.6); Eosinophils % 0.7 %; Hematocrit 36.5 % (35.3-44.9); Hemoglobin 11.4 g/dL (11.5-15.4); Immature Granulocytes % 0.5 % (0-4); Lymphocytes # 1.8 K/mcL (0.6-4.6); Lymphocytes % 11.5 %; Mean Corpuscular HGB Conc 31.2 g/dL (31.6-35.5); Mean Corpuscular Hemoglobin 30.1 pg (28.0-33.3); Mean Corpuscular Volume 96.3 fL (83.0-100.0); Mean Platelet Volume 10.2 fL (9.4-12.4); Monocytes # 1.2 K/mcL (0.0-1.3); Monocytes % 7.8 %; Neutrophils # 12.1 K/mcL (1.6-8.9); Platelet Count 232 K/mcL (140-400); Red Blood Count 3.79 M/mcL (3.82-4.97); Red Cell Distribution Width 14.9 % (11.5-14.5); Segmented Neutrophils % 79.3 %; White Blood Count 15.3 K/mcL (4.3-11.1)
[2021-12-24 11:13] LABS: Prothrombin Time 10.8 Seconds (9.4-12.1)
[2021-12-24 11:16] LABS: Activated Partial Thrombo Time 34.2 Seconds (26.0-36.0)
[2021-12-24] MEDS ORDERED: Piperacillin/Tazobactam 3.375 GM in 0.9 % Sodium Chloride Mini Bag 100 ML IVPB ONE (11:16)
[2021-12-24] MEDS ORDERED: Azithromycin 500 MG in 0.9 % Sodium Chloride 250 ML IVPB ONE (11:17)
[2021-12-24 11:25] LABS: ABG Base Excess 2 mEq/L (-2 to 3); ABG HCO3 27 mEq/L (21-27); ABG Oxygen Saturation 95 % (95-98); ABG PCO2 42 mmHg (35-45); ABG PH 7.41 pH Units (7.32-7.45); ABG PO2 73 mmHg (85-104); ABG TCO2 28 mEq/L (20-26)
[2021-12-24 11:25] LABS: Alanine Aminotransferase 9 Units/L (7-52); Albumin 3.9 g/dL (3.5-5.7); Albumin/Globulin Ratio 1.6 (1.1-2.2); Alkaline Phosphatase 60 Units/L (34-104); Aspartate Amino Transferase 8 Units/L (13-39); BUN/Creatinine Ratio 22 (6-26); Bilirubin,Indirect 0.2 mg/dL (0.0-1.0); Bilirubin,Total 0.2 mg/dL (0.3-1.0); Blood Urea Nitrogen 16 mg/dL (6-20); Calcium 9.4 mg/dL (8.6-10.3); Carbon Dioxide 32 mEq/L (23-29); Chloride 106 mEq/L (98-107); Globulin 2.5 g/dL (2.4-3.5); Glucose 151 mg/dL (70-105); Osmolality,Calculated 302 (280-300); Potassium 3.7 mEq/L (3.5-5.1); Sodium 144 mEq/L (136-145); Total Protein 6.4 g/dL (6.4-8.9); Troponin I < 0.03 ng/mL (< 0.04)
[2021-12-24 11:39] LABS: Influenza A PCR Negative (Negative); Influenza B PCR Negative (Negative); Resp. Syncytial Virus PCR Negative (Negative)
[2021-12-24 11:58] LABS: SARS-CoV-2 by PCR (In House) Negative (Negative)
[2021-12-24] MEDS ORDERED: Iopamidol - 370 500 ML MLS IVP ONE (12:36)
[2021-12-24] MEDS ORDERED: Albuterol 2.5 MG/3 ML NEBULIZER IH PRN (14:48)
[2021-12-24] MEDS ORDERED: Naloxone 0.4 MG/ML INJ IVP PRN (14:51)
[2021-12-24] MEDS ORDERED: Acetaminophen 325 MG TABLET PO PRN (14:51)
[2021-12-24] MEDS: Albuterol 2.5 MG/3 ML NEBULIZER IH SCH ×3 (15:08→23:42)
[2021-12-24] MEDS ORDERED: *HR* Dextrose 50 % in Water (Syg) 50 ML SYRINGE IVP PRN (15:54)
[2021-12-24] MEDS ORDERED: D5% in Water 1,000 ML IVC PRN (15:54)
[2021-12-24] MEDS ORDERED: Dextrose Gel 15 GM/37.5 ML TUBE PO PRN ×2 (15:54)
[2021-12-24] MEDS: Insulin LISPRO 300 UNITS/3 ML VIAL SUBQ SCH (17:51)
[2021-12-24] MEDS: *HR* Heparin 5,000 UNIT/ML VIAL SQ SCH (18:15)
[2021-12-24] MEDS: Piperacillin/Tazobactam 3.375 GM in 0.9 % Sodium Chloride Mini Bag 100 ML IVPB SCH (20:32)
[2021-12-25 00:58] LABS: Bilirubin,Urine Negative (Negative); Blood,Urine Negative (Negative); Clarity,Urine Clear (Clear); Color,Urine Light-Yellow (Yellow); Glucose,Urine (UA) 30 mg/dL (Normal); Ketones,Urine Trace mg/dL (Negative); Leukocyte Esterase,Urine Negative (Negative); Mucus,Urine Few per lpf (None-Few); Nitrite,Urine Negative (Negative); PH,Urine 6.5 pH Units (5.0-8.0); Protein,Urine Trace mg/dL (Neg-Trace); Specific Gravity,Urine > 1.030 (1.010-1.025); Squamous Epithelial Cell,Urine Few per hpf (None-Few); Urobilinogen,Urine Normal (Normal); WBC,Urine 0-3 per hpf (0-3)
[2021-12-25 01:18] LABS: Amphetamine Screen,Urine Negative ng/mL (Cutoff=1000); Barbiturate Screen,Urine Negative ng/mL (Cutoff=200); Benzodiazepines Screen,Urine Positive ng/mL (Cutoff=200); Cannabinoid Screen,Urine Negative ng/mL (Cutoff = 50); Cocaine Screen,Urine Negative ng/mL (Cutoff= 300); Opiate Screen,Urine Negative ng/mL (Cutoff=300); Phencyclidine Screen,Urine Negative ng/mL (Cutoff=25)
[2021-12-25 01:39] LABS: Basophils # 0.1 K/mcL (0.0-0.2); Basophils % 0.3 %; Eosinophils # 0.3 K/mcL (0.0-0.6); Eosinophils % 1.7 %; Hematocrit 36.5 % (35.3-44.9); Hemoglobin 11.3 g/dL (11.5-15.4); Immature Granulocytes % 0.4 % (0-4); Lymphocytes # 2.8 K/mcL (0.6-4.6); Lymphocytes % 18.8 %; Mean Corpuscular Hemoglobin 30.1 pg (28.0-33.3); Mean Corpuscular Volume 97.3 fL (83.0-100.0); Monocytes # 1.6 K/mcL (0.0-1.3); Neutrophils # 10.1 K/mcL (1.6-8.9); Platelet Count 204 K/mcL (140-400); Red Blood Count 3.75 M/mcL (3.82-4.97); Red Cell Distribution Width 15.1 % (11.5-14.5); Segmented Neutrophils % 67.8 %; White Blood Count 14.9 K/mcL (4.3-11.1)
[2021-12-25 01:59] LABS: Alanine Aminotransferase 8 Units/L (7-52); Albumin 3.6 g/dL (3.5-5.7); Albumin/Globulin Ratio 1.5 (1.1-2.2); Alkaline Phosphatase 47 Units/L (34-104); Aspartate Amino Transferase 9 Units/L (13-39); BUN/Creatinine Ratio 16 (6-26); Bilirubin,Total 0.3 mg/dL (0.3-1.0); Blood Urea Nitrogen 12 mg/dL (6-20); Calcium 8.6 mg/dL (8.6-10.3); Carbon Dioxide 29 mEq/L (23-29); Chloride 109 mEq/L (98-107); Globulin 2.4 g/dL (2.4-3.5); Glucose 126 mg/dL (70-105); Osmolality,Calculated 295 (280-300); Sodium 142 mEq/L (136-145)
[2021-12-25 02:16] LABS: ABG Base Excess 3 mEq/L (-2 to 3); ABG HCO3 28 mEq/L (21-27); ABG Oxygen Saturation 91 % (95-98); ABG PCO2 47 mmHg (35-45); ABG PH 7.39 pH Units (7.32-7.45); ABG PO2 64 mmHg (85-104); ABG TCO2 30 mEq/L (20-26); Blood Gas FiO2 5.5 (1-15=lpm or21-100=%)
[2021-12-25] MEDS: Albuterol 2.5 MG/3 ML NEBULIZER IH SCH ×7 (04:27→23:45)
[2021-12-25] MEDS: Piperacillin/Tazobactam 3.375 GM in 0.9 % Sodium Chloride Mini Bag 100 ML IVPB SCH ×3 (05:30→21:12)
[2021-12-25] MEDS: *HR* Heparin 5,000 UNIT/ML VIAL SQ SCH ×2 (05:30→17:15)
[2021-12-25] MEDS: Insulin LISPRO 300 UNITS/3 ML VIAL SUBQ SCH ×3 (08:33→17:20)
[2021-12-25] MEDS ORDERED: Azithromycin 500 MG in 0.9 % Sodium Chloride 250 ML IVPB SCH (09:00)
[2021-12-25] MEDS: Nystatin POWDER 30 GM BOTTLE TP SCH ×3 (12:22→21:03)
[2021-12-25] MEDS ORDERED: *HR* LORazepam 2 MG/ML VIAL IVP ONE (16:49)
[2021-12-25 19:38] LABS: Adenovirus Not Detected (Not Detect); Bordetella Pertussis Not Detected (Not Detect); Chlamydophila pneumoniae Not Detected (Not Detect); Coronavirus 229E Not Detected (Not Detect); Coronavirus HKU1 Not Detected (Not Detect); Coronavirus NL63 Not Detected (Not Detect); Coronavirus OC43 Not Detected (Not Detect); Human Metapneumovirus Not Detected (Not Detect); Human Rhinovirus/Enterovirus Not Detected (Not Detect); Influenza A Subtype 2009 H1 Not Detected (Not Detect); Influenza B Not Detected (Not Detect); Mycoplasma pneumoniae Not Detected (Not Detect); Parainfluenza Virus 1 Not Detected (Not Detect); Parainfluenza Virus 2 Not Detected (Not Detect); Parainfluenza Virus 3 Not Detected (Not Detect); Parainfluenza Virus 4 Not Detected (Not Detect); Respiratory Syncytial Virus Not Detected (Not Detect); SARS-CoV-2 Not Detected (Not Detect)
[2021-12-25] MEDS ORDERED: Albuterol 2.5 MG/3 ML NEBULIZER ONE (20:13)
[2021-12-25] MEDS: risperiDONE 1 MG TABLET PO SCH (21:03)
[2021-12-25] MEDS: diazePAM 5 MG TABLET PO SCH (21:03)
[2021-12-25] MEDS: Divalproex (12 HR) 500 MG TABLET PO SCH (21:03)
[2021-12-25] MEDS: cloZAPine 100 MG TABLET PO SCH (21:03)
[2021-12-25] MEDS: traZODone 50 MG TABLET PO SCH (21:03)
[2021-12-25 21:48] LABS: A.calcoaceticus-baumannii cplx Not Detected (Not Detect); Bacteroides fragilis by PCR Not Detected (Not Detect); Candida albicans by PCR Not Detected (Not Detect); Candida auris by PCR Not Detected (Not Detect); Candida glabrata by PCR Not Detected (Not Detect); Candida krusei by PCR Not Detected (Not Detect); Candida parapsilosis by PCR Not Detected (Not Detect); Candida tropicalis by PCR Not Detected (Not Detect); Crypto. neoformans/gattii PCR Not Detected (Not Detect); Enterobacter cloacae Cmplx PCR Not Detected (Not Detect); Enterobacterales by PCR Not Detected (Not Detect); Enterococcus faecalis by PCR Not Detected (Not Detect); Enterococcus faecium by PCR Not Detected (Not Detect); Escherichia coli by PCR Not Detected (Not Detect); Klebs. pneumoniae group by PCR Not Detected (Not Detect); Klebsiella aerogenes by PCR Not Detected (Not Detect); Klebsiella oxytoca by PCR Not Detected (Not Detect); Proteus by PCR Not Detected (Not Detect); Pseudomonas aeruginosa by PCR Not Detected (Not Detect); Salmonella species by PCR Not Detected (Not Detect); Serratia marcescens by PCR Not Detected (Not Detect); Staph epidermidis by PCR Not Detected (Not Detect); Staph lugdunensis by PCR Not Detected (Not Detect); Staphylococcus aureus by PCR Not Detected (Not Detect); Staphylococcus by PCR DETECTED (Not Detect); Stenotrophomonas maltophilia Not Detected (Not Detect); Streptococcus agalactiae(B)PCR Not Detected (Not Detect); Streptococcus by PCR Not Detected (Not Detect); Streptococcus pneumoniae PCR Not Detected (Not Detect); Streptococcus pyogenes (A) PCR Not Detected (Not Detect)
[2021-12-26] MEDS: Albuterol 2.5 MG/3 ML NEBULIZER IH SCH ×6 (04:34→23:11)
[2021-12-26] MEDS: Piperacillin/Tazobactam 3.375 GM in 0.9 % Sodium Chloride Mini Bag 100 ML IVPB SCH ×3 (05:05→22:10)
[2021-12-26] MEDS: *HR* Heparin 5,000 UNIT/ML VIAL SQ SCH ×2 (06:33→17:37)
[2021-12-26] MEDS: Insulin LISPRO 300 UNITS/3 ML VIAL SUBQ SCH ×3 (08:02→17:37)
[2021-12-26] MEDS: Aspirin Enteric Coated 81 MG Tablet PO SCH (08:03)
[2021-12-26] MEDS: Azithromycin 250 MG TABLET PO SCH (08:03)
[2021-12-26] MEDS: cloZAPine 100 MG TABLET PO SCH (08:03)
[2021-12-26] MEDS: Divalproex (12 HR) 500 MG TABLET PO SCH ×2 (08:03→22:15)
[2021-12-26] MEDS: diazePAM 5 MG TABLET PO SCH ×3 (08:03→22:15)
[2021-12-26] MEDS: risperiDONE 1 MG TABLET PO SCH ×2 (08:03→22:15)
[2021-12-26] MEDS: Nystatin POWDER 30 GM BOTTLE TP SCH ×3 (08:13→22:16)
[2021-12-26] MEDS ORDERED: Ibuprofen 600 MG TABLET PO ONE (11:58)
[2021-12-26 16:08] LABS: Valproate Free <7 ug/mL (7-23); Valproate Total 23 ug/mL (50-125)
[2021-12-26] MEDS: traZODone 50 MG TABLET PO SCH (22:13)
[2021-12-27 01:13] LABS: Hematocrit 31.9 % (35.3-44.9); Mean Corpuscular HGB Conc 30.4 g/dL (31.6-35.5); Mean Corpuscular Volume 95.5 fL (83.0-100.0); Mean Platelet Volume 9.8 fL (9.4-12.4); Platelet Count 200 K/mcL (140-400); Red Blood Count 3.34 M/mcL (3.82-4.97); White Blood Count 10.8 K/mcL (4.3-11.1)
[2021-12-27 01:15] LABS: Hemoglobin 9.7 g/dL (11.5-15.4)
[2021-12-27 01:31] LABS: BUN/Creatinine Ratio 16 (6-26); Blood Urea Nitrogen 11 mg/dL (6-20); Calcium 8.5 mg/dL (8.6-10.3); Carbon Dioxide 28 mEq/L (23-29); Chloride 107 mEq/L (98-107); Glucose 142 mg/dL (70-105); Magnesium 1.8 mg/dL (1.6-2.6); Osmolality,Calculated 294 (280-300); Phosphorous 3.5 mg/dL (2.7-4.5); Potassium 3.7 mEq/L (3.5-5.1); Sodium 141 mEq/L (136-145)
[2021-12-27] MEDS: Albuterol 2.5 MG/3 ML NEBULIZER IH SCH ×4 (04:36→15:34)
[2021-12-27] MEDS: Piperacillin/Tazobactam 3.375 GM in 0.9 % Sodium Chloride Mini Bag 100 ML IVPB SCH (05:03)
[2021-12-27] MEDS: *HR* Heparin 5,000 UNIT/ML VIAL SQ SCH (05:04)
[2021-12-27] MEDS: Insulin LISPRO 300 UNITS/3 ML VIAL SUBQ SCH ×2 (08:33→11:56)
[2021-12-27] MEDS: Divalproex (12 HR) 500 MG TABLET PO SCH (08:37)
[2021-12-27] MEDS: diazePAM 5 MG TABLET PO SCH ×2 (08:38→15:43)
[2021-12-27] MEDS: Aspirin Enteric Coated 81 MG Tablet PO SCH (08:39)
[2021-12-27] MEDS: risperiDONE 1 MG TABLET PO SCH (08:39)
[2021-12-27] MEDS: Azithromycin 250 MG TABLET PO SCH (08:40)
[2021-12-27 10:36] VITALS: BP 113/80; PULSE 97; TEMP 97.4
[2021-12-27] MEDS: Nystatin POWDER 30 GM BOTTLE TP SCH ×2 (11:57)
[2021-12-27 13:04] LABS: Influenza A PCR Negative (Negative); Influenza B PCR Negative (Negative); Resp. Syncytial Virus PCR Negative (Negative)
[2021-12-27 13:11] LABS: SARS-CoV-2 by PCR (In House) Positive (Negative)
[2021-12-27 15:37] VITALS: O2SAT 94
[2021-12-27] MEDS ORDERED: cloZAPine 100 MG TABLET PO SCH (21:00)
== END 2021-12-27 16:00 | DRG 871 ==
LOC: EMEROOARM 08:46 → 2ANU 08:46 → SUATTDRO 14:59 → 2ANU 17:15
PROVIDERS: ADMIT Pharmacist; ATTEND Internal Medicine